=== PATIENT | female | born 1990 | race Caucasian/White ===

== ENCOUNTER → 2019-07-19 | Outpatient (CLI) | payer BC ==
[~2019-07-19] MED LIST: ACHD5005 PO; BCP PO; DOCU100C37 PO; FERR-57 PO; HYDR-3729 PO; IBP600T1 PO; IBUP-1773 PO; PNV91TAB3 PO; PREN1TAB71 PO
--- NOTE | 2019-07-19 16:11 | Diagnostic Imaging Report ---
INDICATION: anatomy survey. TECHNIQUE: Multiple real-time grayscale images were obtained over the gravid uterus. COMPARISON: None. FINDINGS: There are no prior studies available for comparison. FINDINGS: There is a single live fetus in cephalic presentation. heart motion was noted and a rate of 140 bpm was recorded. There are no abnormalities identified. The growth parameters are fairly uniform. The placenta is posterior and fundal and there is no previa. The amniotic fluid volume is within normal limits. The cervix is identified and measures 6.2 cm in length. Biometrical measurements are as follows: Biparietal 4.4 cm, age 19 weeks 3 days. Head circumference 15.97 cm, age 18 weeks 6 days. Abdominal circumference 14.26 cm, age 19 weeks 5 days. Femur length 3 cm, age 19 weeks 2 days. Sonographic estimate age: 19 weeks 3 days. Sonographic estimated date of delivery: 12/10/2019. Estimated Weight: 290 gm (+/- 42 gm). LMP percentile: 51%. heart rate: 140 beats per minute. number: 1 of 1. IMPRESSION: 1. There is a single live fetus of approximately 19 weeks 3 days gestation +/- 1.5 weeks. The EDC is December 10, 2019. 2. There are no abnormalities identified. 3. The growth parameters are fairly uniform. Dictated by: Dictated on workstation # [id number]
== END ==
LOC: RAD 14:13
PROVIDERS: ATTEND Nurse Practitioner Women's Health
DX: Z36.89 Encounter for other specified antenatal screening (principal); Z3A.19 19 weeks gestation of pregnancy
CPT/HCPCS: 76805

== ENCOUNTER 2019-11-29 05:35 | Outpatient (CLI) | payer BC ==
[~2019-11-29] VITALS: Ht 170.2 cm; Wt 123.6 kg
[2019-11-29] MEDS ORDERED: PREN1TAB73 PO (14:24)
== END 2019-11-29 14:25 | disposition home or self-care (01) ==
LOC: PREOP 05:35
PROVIDERS: ATTEND Obstetrics & Gynecology
DX: Z01.818 Encounter for other preprocedural examination (principal)

== ENCOUNTER 2019-12-07 06:45 | Inpatient (IN) | payer BC ==
[~2019-12-07] VITALS: Ht 170.2 cm; Wt 123.6 kg
[2019-12-07] VITALS (9 sets, daily range): BP systolic 95–117; BP diastolic 56–73
[~2019-12-07 06:45] MED LIST changes: +PREN1TAB73 PO
[2019-12-07] MEDS ORDERED: LACTATED RINGERS 1,000 ML IV PRN (07:44)
[2019-12-07] MEDS ORDERED: CITRIC ACID/SOB CIT (BICITRA) 30 ML UDC PO ONE (07:45)
[2019-12-07] MEDS ORDERED: METOCLOPRAMIDE INJ 10 MG/2 ML (REGLAN) IV ONE (07:45)
[2019-12-07] MEDS ORDERED: FAMOTIDINE 20MG/2ML IV (PEPCID) IV ONE (07:45)
[2019-12-07] MEDS ORDERED: CATHETER FLUSH 10 ML SYR IV PRN (07:45)
[2019-12-07 08:27] LABS: BASOPHILS % (AUTO) 0 % (0-10); EOSINOPHILS # (AUTO) 0.1 10^3/uL (0.0-0.3); EOSINOPHILS % (AUTO) 1 % (0-10); HEMATOCRIT 35 % (35-52); LYMPHOCYTES # (AUTO) 1.7 X 10^3 (1.0-4.0); LYMPHOCYTES % (AUTO) 22 % (12-44); MEAN CORPUSCULAR HEMOGLOBIN 29 PG (25-34); MEAN CORPUSCULAR HGB CONC 34 G/DL (32-36); MEAN CORPUSCULAR VOLUME 85 FL (80-99); MONOCYTES # (AUTO) 0.5 X 10^3 (0.0-1.0); MONOCYTES % (AUTO) 6 % (0-12); NEUTROPHILS # (AUTO) 5.5 X 10^3 (1.8-7.8); NEUTROPHILS % (AUTO) 71 % (42-75); PLATELET COUNT 210 10^3/uL (130-400); RED CELL DISTRIBUTION WIDTH 14.8 % (10.0-14.5); WHITE BLOOD COUNT 7.8 10^3/uL (4.3-11.0)
[2019-12-07] MEDS: LACTATED RINGERS 1,000 ML IV PRN ×2 (08:33→09:35)
--- NOTE | 2019-12-07 08:51 | History & Physical-OB ---
OB - Chief Complaint & HPI Date/Time Date of Admission: Date of Admission: Dec 07, 2019 at 06:45 Date seen by a Provider: Dec 07, 2019 Time Seen by a Provider: 08:30 Chief Complaint/History OB-Reason for Admission/Chief: Section Hx : 4 Hx Para: 3 Expected Date of Delivery: Dec 11, 2019 Gestational Age in Weeks: 39 Gestational Age in Days: 3 Indication for : desires repeat Admission Nurse Assessment Rev: Yes History of Labs B pos Antibody neg RPR NR HBsAg NR HIV NR GC neg RI GBS neg Allergies and Home Medications Allergies Coded Allergies: No Known Drug Allergies (Verified Allergy, Unknown, 09/30/09) Home Medications Pnv95/Ferrous Fumarate/FA 1 Each Tablet, 1 EACH PO DAILY, (Reported) Patient Home Medication List Home Medication List Reviewed: Yes OB - History Hx of Present Care: Yes Ultrasounds: Normal mid trimester US Obstetrical Complications: None Medical Complications: None Obstetrical History Hx Termination: No Hx Multiple Gestation: No Hx Stillbirth: No Hx Complication: No Hx Induced Hypertens: No Hx Maternal Gestational Diabet: No Delivery History Hx Dystocia: No Hx Large For Gestational Age I: No Hx Small for Gestational Age I: No Hx Section: No Hx Vaginal Delivery Post C-Sec: No Hx Blood Disorders: No Adverse Rxn to Tranfusion: No Patient Past Medical History obesity BMI >35 Immunizations Hepatitis A: Yes Hepatitis B: Yes Tetanus Booster (TDap): Less than 5yrs Date of Influenza Vaccine: Jun 21, 2019 OB - Admission Exam Physical Exam HEENT: NCAT Heart: Rhythm Normal Lungs: Clear Abdomen: Gravid Extremities: Normal Reflexes: Normal Heart Rate: 130's Accelerations: Accelerations Present Decelerations: No Decelerations Short Term Variability: Present Print Buyer Variability: Average (6-25) Contractions on Admission: >10 Minutes Apart Intensity: Mild Labs Laboratory Tests Test 12/07/19 08:00 Range/Units White Blood Count 7.8 4.3-11.0 10^3/uL Red Blood Count 4.11 L 4.35-5.85 10^6/uL Hemoglobin 12.0 11.5-16.0 G/DL Hematocrit 35 35-52 % Mean Corpuscular Volume 85 80-99 FL Mean Corpuscular Hemoglobin 29 25-34 PG Mean Corpuscular Hemoglobin Concent 34 32-36 G/DL Red Cell Distribution Width 14.8 H 10.0-14.5 % Platelet Count 210 130-400 10^3/uL Mean Platelet Volume 11.0 H 7.4-10.4 FL Neutrophils (%) (Auto) 71 42-75 % Lymphocytes (%) (Auto) 22 12-44 % Monocytes (%) (Auto) 6 0-12 % Eosinophils (%) (Auto) 1 0-10 % Basophils (%) (Auto) 0 0-10 % Neutrophils # (Auto) 5.5 1.8-7.8 X 10^3 Lymphocytes # (Auto) 1.7 1.0-4.0 X 10^3 Monocytes # (Auto) 0.5 0.0-1.0 X 10^3 Eosinophils # (Auto) 0.1 0.0-0.3 10^3/uL Basophils # (Auto) 0.0 0.0-0.1 10^3/uL OB - Assessment/Plan/Diagnosis Assessment Assessment: section Admission Dx 29 yo @ 39.3 weeks Previous section Admission Status: Inpatient Order (span 2 midnights) Reason for Inpatient Admission: Repeat cesearean at term Plan Plan: Section SULY HOFFMAN DO Dec 07, 2019 08:51
[2019-12-07] MEDS ORDERED: OXYTOCIN PRE-MIX DRIP 500 ML IV SCH (08:54)
[2019-12-07] MEDS ORDERED: BISACODYL 10 MG SUPP (DULCOLAX) PR PRN (09:00)
[2019-12-07] MEDS ORDERED: MEASLES,MUMPS,RUBELLA 1 EA INJ SC SCH (09:00)
[2019-12-07] MEDS ORDERED: ONDANSETRON 4 MG/2 ML (SDV) Z0FRAN IVP PRN (09:00)
[2019-12-07] MEDS ORDERED: TETANUS,DIPTH,PERTUSS P/F (BOOSTRIX) 0.5 ML VIAL IM SCH (09:00)
[2019-12-07] MEDS ORDERED: ceFAZolin 2 GM IV Premixed 50 ML ONE (09:02)
[2019-12-07] MEDS ORDERED: ONDANSETRON 4 MG/2 ML (SDV) Z0FRAN ONE (09:03)
[2019-12-07] MEDS ORDERED: fentaNYL INJECTION 100 MCG/2 ML AMP ONE (09:03)
[2019-12-07] MEDS ORDERED: BUPIVACAINE 0.5% 30 ML (SENSORCAINE) VIAL ONE (09:12)
[2019-12-07] MEDS ORDERED: Hydrocodone Bit/Acetaminophen PO (09:16)
[2019-12-07] MEDS ORDERED: DCS100C PO (09:16)
[2019-12-07] MEDS ORDERED: IBUP-844 PO (09:16)
--- NOTE | 2019-12-07 09:17 | Discharge Inst-Women's Service ---
Discharge Inst-Women's Serv Depart Medication/Instructions New, Converted or Re-Newed RX: RX on Chart Final Diagnosis POD 2 RLTCS Problems Reviewed?: Yes Consults/Follow Up Additional Follow Up: Yes Orders/Referrals Dr. Kerr in 7-10 days and in 6 weeks Activity Activity: Activity as Tolerated Driving Instructions: No Driving for 1 Week NO SMOKING: NO SMOKING Nothing Inside Vagina: No Douching, No Burlison, No Tampons Diet Discharge Diet: No Restrictions Symptoms to Report to : Bleeding Excessive, Pain Increased, Fever Over 101 Degrees F, Vaginal Bleeding Increase, Questions/Concerns For Any Problems or Questions: Contact Your Physician Skin/Wound Care Infection Signs and Symptoms: Increased Redness, Foul Odor of Wound, Increased Drainage, Skin Itchy or Has a Rash, Increased Swelling, Temperature Above 101 F Operative Area Clean and Dry: Keep Incision Clean/Dry Stitches/Obi/Dermabond: Dermabond, Care of Stitches Bathing Instructions: SULY Rushing DO Dec 07, 2019 09:17
[2019-12-07] MEDS: ceFAZolin 2 GM IV Premixed 50 ML IV ONE ×2 (09:32→09:49)
[2019-12-07] MEDS ORDERED: diphenhydrAMINE 50 MG/ML INJ (BENADRYL) IV PRN (10:15)
[2019-12-07] MEDS ORDERED: ONDANSETRON 4 MG/2 ML (SDV) Z0FRAN IV PRN (10:15)
[2019-12-07] MEDS ORDERED: NALOXONE 0.4 MG/ML 1 ML (NARCAN) VIAL IV PRN (10:15)
[2019-12-07] MEDS ORDERED: KETOROLAC 30 MG/ML VIAL ONE (10:19)
[2019-12-07] MEDS: KETOROLAC 30 MG/ML VIAL IV SCH ×2 (10:30→23:35)
--- NOTE | 2019-12-07 11:42 | NUR ---
apodaca catheter dc'd per Dr's orders. 50cc dark, yellow urine noted in chamber. FFu/0. lt rubra noted, no clots expressed. laith-care offered. v-pad in place.
--- NOTE | 2019-12-07 11:44 | NUR ---
pt transferred to room 305 via bed with , staff and s/o @ side. call light within reach. familiarized with room supplies..
--- NOTE | 2019-12-07 12:10 | NUR ---
report given to BEE Ventura. care assumed of pt.
--- NOTE | 2019-12-07 12:19 | NUR ---
RT notified of IS to be started
[2019-12-07] MEDS: DOCUSATE SODIUM 100 MG (COLACE) CAP PO SCH ×2 (12:46→23:35)
--- NOTE | 2019-12-07 14:58 | NUR ---
Assisted up to bathroom, void and back to bed.
[2019-12-07] MEDS: HYDROcodone/APAP 5 MG/325 MG (LORTAB) TAB PO PRN (15:05)
--- NOTE | 2019-12-07 16:11 | OPERATIVE REPORT ---
DATE OF SERVICE: PREOPERATIVE DIAGNOSES: 1. A 29-year-old G4, P3, at 39 weeks' gestation. 2. Previous section. POSTOPERATIVE DIAGNOSES: 1. A 29-year-old G4, P3, at 39 weeks' gestation. 2. Previous section. PROCEDURE: Repeat low transverse section. SURGEON: Ish Hoffman DO MICROGRINDER OPERATOR: Hanna Sheets DNP, who was necessary for vital retraction and manipulation of structures throughout the procedure. ANESTHESIA: Spinal. ESTIMATED BLOOD LOSS: 600 mL. URINE OUTPUT: 300 mL clear at the end of the procedure. FLUIDS: 700 mL lactated Ringer's solution. FINDINGS: A live male infant weighing 9 pounds 6 ounces, Apgars of 8 and 9. Grossly normal appearing uterus, bilateral fallopian tubes and ovaries. SPECIMEN SENT: None. INDICATIONS FOR PROCEDURE: This 29-year-old female who is a patient who had sought care in my office. Her course was uncomplicated with the exception of an elevated BMI. She progressed to 39 weeks without complication, at which point she was scheduled for repeat . Risks of the procedure was discussed with the patient throughout her course as well as preoperatively after all of her questions were answered, consent was obtained, the patient was taken to the operating room. OPERATIVE REPORT IN DETAIL: Once in the operating room, spinal analgesia was found to be adequate, placed in supine position with leftward tilt, prepped and draped in normal sterile fashion. A timeout was performed and anesthesia was tested. I then make a Pfannenstiel skin incision through the previously existing scar using a knife and carried down to underlying fascia using Bovie cautery. The fascial incision extended laterally using Bovie cautery. Superior aspect of the fascial incision was then grasped with Jerry clamps, tented up and dissected off the underlying rectus muscles. The inferior aspect of the fascial incision was then grasped with Jerry clamps, tented upward and dissected off the underlying rectus muscles. Rectus muscles were then dissected down the midline, which exposed the peritoneum, which I then entered bluntly and extended using blunt traction. Pardeep ring retractor was placed within the peritoneal incision, which offers excellent lateral sidewall retraction. I identified the lower uterine segment, which was found to be thinned out and make a low transverse incision to the vesicouterine peritoneum and bluntly dissected off the lower uterine segment. I proceeded with myotomy until membranes were visualized, at which point I extended the uterine incision laterally and superiorly using bandage scissors. Amniotomy was then performed using Allis clamp. Clear fluid was noted. The was found in vertex presentation. With gentle fundal pressure, the infant's head was elevated to the incision where it was delivered through the incision. The nares and oropharynx were bulb suctioned. Anterior and posterior shoulders were delivered. was then brought to the operative field where cord was doubly clamped and cut and handed off to waiting nurses in attendance. Cord blood was collected. A 3-vessel cord with intact placenta was delivered spontaneously thereafter. IV Pitocin was initiated to facilitate uterine contraction. Uterine fundus confirmed with bimanual massage. The uterus was then exteriorized and cleared of all endometrial clots and debris. I then proceeded with closing the uterine incision using 0 Vicryl suture in running locked fashion. Second layer of imbricating 0 Monocryl was placed. Excellent hemostasis was noted after doing this. I then placed the uterus back within the pelvis and copiously irrigated the pelvis using normal saline. Once again, there was no active bleeding noted from any of my dissection planes. I placed Interceed antiadhesive over my low transverse incision and proceeded with closing the peritoneum after I removed the Pardeep ring retractor. The peritoneum was reapproximated using 3-0 Vicryl suture in running fashion. The rectus muscles were reapproximated using 3-0 Vicryl suture in interrupted fashion. The fascia was reapproximated using 0 Vicryl suture in a running fashion. The subcutaneous tissue was reapproximated using 3-0 plain in interrupted subcutaneous stitch and skin reapproximated using 4-0 Monocryl running subcuticular. Dermabond was applied to the incision and sterile dressing was adhesed with white tape. The patient tolerated the procedure well and was taken to recovery area in stable condition. Lap and sponge counts were correct at the end of procedure. Instrument counts correct as well. Job ID: [id number] DocumentID: [id number] Dictated Date: 12/07/2019 10:25:06 Color Separation Photographer Date: 12/07/2019 16:10:36 Dictated By: ISH HOFFMAN DO
[2019-12-07] MEDS: CATHETER FLUSH 10 ML SYR IV SCH (16:55)
--- NOTE | 2019-12-07 19:55 | NUR ---
Patient awake in room, sitting in bed . S/O at bedside. No needs or concerns voiced. POC reviewed. Call light within reach.
[2019-12-08 01:30] VITALS: BP 106/66
[2019-12-08] MEDS: KETOROLAC 30 MG/ML VIAL IV SCH (06:04)
[2019-12-08] MEDS: HYDROcodone/APAP 5 MG/325 MG (LORTAB) TAB PO PRN ×2 (06:05→23:22)
[2019-12-08 06:15] VITALS: BP 114/78
[2019-12-08 06:36] LABS: BASOPHILS % (AUTO) 0 % (0-10); EOSINOPHILS # (AUTO) 0.1 10^3/uL (0.0-0.3); EOSINOPHILS % (AUTO) 1 % (0-10); HEMATOCRIT 35 % (35-52); HEMOGLOBIN 11.7 G/DL (11.5-16.0); LYMPHOCYTES # (AUTO) 1.7 X 10^3 (1.0-4.0); LYMPHOCYTES % (AUTO) 19 % (12-44); MEAN CORPUSCULAR HEMOGLOBIN 28 PG (25-34); MEAN CORPUSCULAR HGB CONC 33 G/DL (32-36); MEAN CORPUSCULAR VOLUME 85 FL (80-99); MEAN PLATELET VOLUME 11.7 FL (7.4-10.4); MONOCYTES # (AUTO) 0.6 X 10^3 (0.0-1.0); MONOCYTES % (AUTO) 7 % (0-12); NEUTROPHILS # (AUTO) 6.4 X 10^3 (1.8-7.8); NEUTROPHILS % (AUTO) 73 % (42-75); PLATELET COUNT 194 10^3/uL (130-400); RED CELL DISTRIBUTION WIDTH 14.8 % (10.0-14.5); WHITE BLOOD COUNT 8.7 10^3/uL (4.3-11.0)
[2019-12-08] MEDS: IBUPROFEN 600 MG (MOTRIN) TAB PO SCH ×3 (08:32→21:24)
[2019-12-08] MEDS: DOCUSATE SODIUM 100 MG (COLACE) CAP PO SCH ×2 (08:40→21:23)
--- NOTE | 2019-12-08 08:42 | Postpartum Progress Note ---
Post Op Post-operative Day #1 s/p RLTCS Subjective: Patient is without complaints. Ambulating, voiding after apodaca removed. Tolerating a regular diet without nausea or vomiting. Normal lochia. Pain is well controlled with oral pain medications. Passing flatus. breast feeding. Objective: Laboratory Tests Test 12/08/19 06:05 Range/Units White Blood Count 8.7 4.3-11.0 10^3/uL Red Blood Count 4.15 L 4.35-5.85 10^6/uL Hemoglobin 11.7 11.5-16.0 G/DL Hematocrit 35 35-52 % Mean Corpuscular Volume 85 80-99 FL Mean Corpuscular Hemoglobin 28 25-34 PG Mean Corpuscular Hemoglobin Concent 33 32-36 G/DL Red Cell Distribution Width 14.8 H 10.0-14.5 % Platelet Count 194 130-400 10^3/uL Mean Platelet Volume 11.7 H 7.4-10.4 FL Neutrophils (%) (Auto) 73 42-75 % Lymphocytes (%) (Auto) 19 12-44 % Monocytes (%) (Auto) 7 0-12 % Eosinophils (%) (Auto) 1 0-10 % Basophils (%) (Auto) 0 0-10 % Neutrophils # (Auto) 6.4 1.8-7.8 X 10^3 Lymphocytes # (Auto) 1.7 1.0-4.0 X 10^3 Monocytes # (Auto) 0.6 0.0-1.0 X 10^3 Eosinophils # (Auto) 0.1 0.0-0.3 10^3/uL Basophils # (Auto) 0.0 0.0-0.1 10^3/uL 12/08/19 12/08/19 01:30 06:15 Temp 36.4 36.5 Pulse 68 88 Resp 18 18 B/P (MAP) 106/66 (79) 114/78 (90) Pulse Ox 95 97 O2 Delivery Room Air Room Air 12/08/19 00:00 Intake Total 500 ml Balance 500 ml Physical Exam: General - Alert and oriented, no apparent distress Abdomen - Soft, appropriately tender to palpation, non-distended, fundus firm at umbilicus Incision - clean, dry and intact; no erythema or induration, no drainage Extremities - no edema, negative Мария's bilaterally Assessment: 1. post-operative day # 1, status post RLTCS. Recovering well, hemodynamically stable Plan: Routine post-operative care. Encourage breast feeding. Encourage ambulation. VTE prophylaxis: SCDs. Ferrous sulfate supplementation. Plan for discharge tomorrow Vitals - Labs Vital Signs - I&O Vital Signs Date Time Temp Pulse Resp B/P (MAP) Pulse Ox O2 Delivery O2 Flow Rate FiO2 12/08/19 06:15 36.5 88 18 114/78 (90) 97 Room Air 12/08/19 01:30 36.4 68 18 106/66 (79) 95 Room Air 12/07/19 20:40 36.5 76 18 95/62 (73) 95 Room Air 12/07/19 16:12 Room Air 12/07/19 15:06 37.1 90 18 117/56 (76) 97 Room Air 12/07/19 12:45 36.7 70 18 117/68 (84) 100 Room Air 12/07/19 11:32 36.3 18 109/65 (80) 98 Room Air 12/07/19 11:32 Room Air 12/07/19 11:32 36.3 77 18 109/65 (80) 98 Room Air 12/07/19 11:16 36.2 16 106/62 (77) 100 Room Air 12/07/19 11:16 Room Air 12/07/19 10:58 Room Air 12/07/19 10:58 36.1 16 117/61 (79) 98 Room Air 12/07/19 10:40 Room Air 12/07/19 10:40 36.1 16 114/61 (78) 100 Room Air I & O 12/08/19 07:00 Intake Total 2350 ml Output Total 1950 ml Balance 400 ml Labs Laboratory Tests 12/08/19 06:05: White Blood Count 8.7, Red Blood Count 4.15L, Hemoglobin 11.7, Hematocrit 35, Mean Corpuscular Volume 85, Mean Corpuscular Hemoglobin 28, Mean Corpuscular Hemoglobin Concent 33, Red Cell Distribution Width 14.8H, Platelet Count 194, Mean Platelet Volume 11.7H, Neutrophils (%) (Auto) 73, Lymphocytes (%) (Auto) 19, Monocytes (%) (Auto) 7, Eosinophils (%) (Auto) 1, Basophils (%) (Auto) 0, Neutrophils # (Auto) 6.4, Lymphocytes # (Auto) 1.7, Monocytes # (Auto) 0.6, Eosinophils # (Auto) 0.1, Basophils # (Auto) 0.0 CARRILLO HAWKINS DO Dec 08, 2019 08:42
--- NOTE | 2019-12-08 11:43 | Anesthesia-Regional Post-Op ---
Regional Patient Condition Mental Status: Alert, Oriented x3 Circulation: Same as Pre-Op Headache: Absent Sensation: Full Recovery Motor Block: Absent Post Op Complications Complications None Follow Up Care/Instructions Patient Instructions None needed. Anesthesia/Patient Condition Patient is doing well, no complaints, stable vital signs, no apparent adverse anesthesia problems. No complications reported per nursing. MAGO HENDRIX CRNA Dec 08, 2019 11:43
[2019-12-08 12:22] VITALS: BP 107/64
[2019-12-08] MEDS: CATHETER FLUSH 10 ML SYR IV SCH ×2 (14:00→22:13)
[2019-12-08 17:31] VITALS: BP 105/72
--- NOTE | 2019-12-08 20:00 | NUR ---
Pt sitting up in bed holding . Infant handed to FOB. Fundus checked per this RN. Fundus firm, no excessive bleeding noted. Pt denies any concerns.
--- OUTSIDE RECORDS SUMMARY | 2019-12-08 23:04 | XMS REPORT ---
Author Author [employer]. Organization [facility] Address [address] [address] Care Team Providers Care Olive Grader Name Role Phone NO, LOCAL PHYSICIAN Unavailable Unavailable Iveth Hurst Unavailable Unavailable Iveth Hurst Unavailable Unavailable REMEDIOS HAYNES Unavailable HetJose J maldonado Unavailable Iveth Hurst Unavailable Unavailable Jose J Rodríguez Unavailable [place] yusuf Unavailable [place] yusuf Unavailable CARRILLO HAWKINS DO Unavailable Unavailable CARRILLO HAWKINS DO Unavailable Unavailable FENECH DOSULY S Unavailable Unavailable FENECH DO SULY S Unavailable Unavailable MIKY GONZALEZ APRN Unavailable Unavailable NO, LOCAL PHYSICIAN PCP Unavailable Allergies Normalized Allergy Reported Date of Reaction(s) Care Provider Facility Allergy Type classification allergen Allergy Onset NEGATED no information cromolyn no information 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 [facility] (13 sources.) ([address]881) DA (21 Unclassified No Known Drug 09-30-2009 - no information CARRILLO HAWKINS , Not Available sources.) Allergies DO (91319) Medications Current Medications Medication Ingredient Drug Dose Dates Status Sig Sig Care Class(es) (Normalized) (Original) Provid er no Pnv95/Nas no Active no Pnv95/Ferrou no information us information information s name (2 Fumarate/Fa Fumarate/Fa (no sources.) Active 1 phone) ORAL Daily 11-29-2019 Completed no Pnv95/Fe no name inform rrous (no ation Fumarate phone) /Fa Disconti nued 1 ORAL Daily November 29, 2019 Completed/Discontinued Medications Medication Ingredient Drug Dose Dates Status Sig Sig Care Class(es) (Normalized) (Original) Provid er no Bcp no 07-19-20 Complete no Bcp no information information 16 d information Disconti nued name (1 source.) 1 ORAL (no Bedtime phone) July 19, 2016 no no 09-08-20 Complete no no information Vit/Fe information 15 d information Vit/Fe name (1 source.) Fumarate/Fa Fumarate/Fa (no Discontinued phone) 1 ORAL Daily September 08, 2015 Problems Active Problems Problem Normalized Date of Normalized Normalized Provider Fac ility Classification Problem(s) Problem Problem Problem Sta tus Onset/Resoluti Duration on Residual 19 weeks Episodic Active MIKY GONZALEZ [facility] Via codes; gestation of [facility] un[facility] - (3 sources.) [place] ([id number]) Other Encounter for Episodic Active MIKY GONZALEZ [facility] Via screening for other [place] suspected specified Hospital - conditions [place] (not mental screening (82533) disorders or infectious disease) (3 sources.) Residual H/O: Episodic Active LOCAL NO [facility] Via codes; section [facility] (1 source.) (68906) Past or Other Problems Problem Normalized Date of Normalized Normalized Provider Fac ility Classification Problem(s) Problem Problem Problem Sta tus Onset/Resoluti Duration on Residual 19 weeks no information no information MIKY GONZALEZ [facility] Via codes; gestation of [facility] un[facility] - (1 source.) [place] ([id number]) Residual 39 weeks no information no information SULY FENECH Not Available codes; gestation of , DO (06734) unclassified (5 sources.) Biliary tract Calculus of 01-07-2018 - Episodic Completed no nam e no information disease (6 gallbladder sources.) without cholecystitis without obstruction Translations: [ Cholecystitis, unspecified] Other Congenital or Episodic Completed RAMANA Not Avai lable complications acquired JOHN , (27866) of abnormality of MD (1 source.) vagina, antepartum condition or complication Other skin Disorder of Episodic Completed CARRILLO HAWKINS , Not A vailable disorders (7 the skin and DO (73432) sources.) subcutaneous tissue, unspecified Other Encounter for no information no information MIKY ALFONSO [facility] Via screening for other [place] suspected specified Hospital - conditions [place] (not mental screening (80658) disorders or infectious disease) (1 source.) Other female Leukorrhea, Episodic Completed RAMANA Not Mary ilable genital not specified JOHN , (37654) disorders (1 as infective MD source.) Previous Maternal care no information no information SULY Duque ENECH Not Available (5 for low , DO (45500) sources.) transverse scar from previous delivery Malposition; Maternal care Episodic Completed SULY FENECH Not Available malpresentatio for , DO (90027) n (9 sources.) malpresentatio n of fetus, unspecified, not applicable or unspecified Translations: [ MATERNAL CARE FOR BREECH PRESENTATION, U] Nausea and Nausea 01-07-2018 - Episodic Completed no name [facility] vomiting ([facility] sources.) (51449) Umbilical cord Other and Episodic Completed CARRILLO HAWKINS , Not Available complication unspecified DO (99100) (9 sources.) cord entanglement, without mention of compression, complicating labor and delivery, delivered, with or without mention of antepartum condition Translations: [ LABOR AND DELIVERY COMP BY CORD AROUND N] Other Other current Episodic Completed CARRILLO HAWKINS , Not Available complications conditions DO (44250) of ; classifiable puerperium elsewhere of affecting mother, management of delivered, mother (4 with or sources.) without mention of antepartum condition Other Outcome of Episodic Completed CARRILLO HAWKINS , Not Mary ilable and delivery, DO (17769) delivery single including liveborn normal (9 Translations: sources.) [ SINGLE LIVE ] Abdominal pain Right upper 01-07-2018 - Episodic Completed no na [facility] (3 sources.) quadrant pain [facility] ([id number]) Procedures Procedure Normalized Procedure Procedure Result Performer Facility Date 01-23-2018 Comprehen metabolic no information no name (no phon e) [facility] 01-23-2018 ([id number]) (Work Phone: - ) 01-23-2018 01-23-2018 Echo exam of abdomen no information no name (no darren ne) [facility] 01-23-2018 ([id number]) (Work Phone: - ) 01-23-2018 EXTRACTION OF POC, LOW no information no name (no phone) Not Available ([id number]) CERVICAL, OPEN AP Other manually no information no name (no phone) Not Availab le (91207) assisted delivery 01-23-2018 WBC (Leukocytes) no information no name (no phone) [facility] 01-23-2018 ([id number]) (Work Phone: - ) 01-23-2018 Immunizations The data below is from unstructured sources Immunization Event Date Not Given Reason Dose Number Switchboard Operator Lot Number Vaccine Information Statement (VIS) Deta il Results The data below is from unstructured sourcesNo known relevant diagnostic tests and/or laboratory data. Vital Signs Vital Sign Value Interpretation Reference Date Time Care [facility] (Normalized) (Normalized) Range BMI (Body Mass 39.31 kg/m2 (no code) 15 - 25 kg/m2 02-27-2018 [employer]) 11:45-0400 [id number] [facility] ([id number]) ( ) BMI (Body Mass 39.47 kg/m2 (no code) 15 - 25 kg/m2 01-23-2018 Per [employer] Index) 11:55-0400 06616 [facility] ([id number]) ( ) BMI (Body Mass 39.78 kg/m2 (no code) 15 - 25 kg/m2 01-10-2018 [employer]) 10:39-0400 94865 [facility] ([id number]) ( ) Body 98.1 [degF] (no code) 97.8 - 99.0 02-27-2018 Suly [employer] Temperature [degF] 11:45-0400 35481 [facility] ([id number]) ( ) Body 98.8 [degF] (no code) 97.8 - 99.0 01-23-2018 Suly [employer] Temperature [degF] 11:55-0400 36607 [facility] ([id number]) ( ) Body 98.8 [degF] (no code) 97.8 - 99.0 01-10-2018 Suly [employer] Temperature [degF] 10:39-0400 06173 [facility] ([id number]) ( ) Blood Pressure 126/ (no code) Systolic: 90 - 02-27-2018 [facility] [place] [facility] 96mm[Hg] 119 mm[Hg] 11:45-0400 76383 [facility] ([id number]) Diastolic: 60 (Work Phone: - 79 mm[Hg] ) Blood Pressure 124/ (no code) Systolic: 90 - 01-23-2018 Saurav ael [place] [facility] 86mm[Hg] 119 mm[Hg] 11:550400 27213 [facility] ([id number]) Diastolic: 60 (Work Phone: - 79 mm[Hg] ) Blood Pressure 124/ (no code) Systolic: - 01-10-2018 Saurav ael [place] [facility] 86mm[Hg] 119 mm[Hg] 10:390400 68398 [facility] ([id number]) Diastolic: 60 (Work Phone: - 79 mm[Hg] ) BSA (Body 2.32 m2 (no code) m2 02-27-2018 [employer] [facility] Surface Area) 11:450400 87218 [facility] ([id number]) ( ) BSA (Body 2.32 m2 (no code) m2 01-23-2018 [employer] [facility] Surface Area) 11:55-0400 98232 [facility] ([id number]) ( ) BSA (Body 2.33 m2 (no code) m2 01-10-2018 [employer] [facility] Surface Area) 10:39-0400 58544 [facility] ([id number]) ( ) Height 170.18 cm (no code) cm 02-27-2018 [employer] [facility] 11:450400 97124 [facility] ([id number]) ( ) Height 170.18 cm (no code) cm 01-23-2018 [place]uly [place] [employer] [facility] 11:55-0400 48896 [facility] ([id number]) ( ) Height 170.18 cm (no code) cm 01-10-2018 [place] [employer] 10:39-0400 74173 [facility] ([id number]) ( ) Pulse (Heart 89 /min (no code) 60 - 100 /min 02-27-2018 Suly [place] [facility] Rate) 11:45-0400 98476 [facility] ([id number]) ( ) Pulse (Heart 87 /min (no code) 60 - 100 /min 01-23-2018 Suly [place] [facility] Rate) 11:55-0400 44492 [facility] ([id number]) ( ) Pulse (Heart 74 /min (no code) 60 - 100 /min 01-10-2018 Suly [place] [facility] Rate) 10:39-0400 33423 [facility] ([id number]) ( ) Pulse Oximetry 98 % (no code) 95 - 100 % 02-27-2018 Suly [place] [facility] 11:45-0400 39701 [facility] ([id number]) ( ) Pulse Oximetry 99 % (no code) 95 - 100 % 01-23-2018 Suly [place] [facility] 11:55-0400 14115 [facility] ([id number]) ( ) Pulse Oximetry 98 % (no code) 95 - 100 % 01-10-2018 Suly [place] [facility] 10:39-0400 93814 [facility] ([id number]) ( ) Respiratory 16 /min (no code) 12 - 20 /min 02-27-2018 Suly [facility] Rate 11:45-0400 14275 [facility] ([id number]) ( ) Respiratory 16 /min (no code) 12 - 20 /min 01-23-2018 Suly B olt [facility] Rate 11:55-0400 91733 [facility] ([id number]) ( ) Respiratory 18 /min (no code) 12 - 20 /min 01-10-2018 Suly B olt [facility] Rate 10:39-0400 23751 [facility] ([id number]) ( ) Weight 113.85 kg (no code) kg 02-27-2018 [place]uly [place] [employer] [facility] 11:45-0400 10621 [facility] ([id number]) ( ) Weight 114.31 kg (no code) kg 01-23-2018 [facility] 11:[facility] 60388 [facility] ([id number]) ( ) Weight 115.21 kg (no code) kg 01-10-2018 [place] L [employer] 10:39-0400 67652 [facility] ([id number]) ( ) Interventions No Information Plan of Treatment Normalized Care Care Detail Care Activity Date Care Provider F acility Activity Complete cbc w/auto CBC with Diff, 02-15-2018 - [facility] [address] [place] [address] diff wbc automated 02-15-2018 - [facility] 02-15-2018 ([id number]) ( ) Patient referral no information no information LOCAL NO [facility] ([id number]) no information gallstone no information Suly [place] [address] [facility] ([id number]) ( ) Goals Patient Goal Desired Goal no information no information Social History Normalized Code Original Code Date Value no information no information 09-09-2015 Rarely Uses no information no information 09-10-2013 No no information no information 09-12-2013 Denies no information no information 11-29-2019 Never a Smoker Sex Assigned At Sex Assigned At no information F emale Functional Status The data below is from unstructured sources Query Response Date Jacob rded Patient Orientation Person Place Time Situation July 23, 2016 2:12pm No Functional Status information available Mental Status The data below is from unstructured sourcesNo Mental Status Information Available Encounters Encounter Normalized Encounter Encounter Diagnosis Care Provi donavon Organization Date Type 01-07-2018 Emergency department no information no name (no darren ne) no organization name - patient visit (no phone) 01-07-2018 09-10-2013 Evaluation and no information no name (no phone) n o organization name - management of (no phone) 09-12-2013 inpatient 01-10-2018 Office/outpatient no information Jose J Rodríguez [facility] - visit, est, level 3 (no phone) 01-10-2018 - 01-10-2018 01-23-2018 Office/outpatient no information Suly Arambula Other Dr. Ralf galeana (no - visit, new, level 2 darren ne) 01-23-2018 - 01-23-2018 02-16-2018 Patient encounter no information no name (no phone) no organization name - (no phone) 02-16-2018 01-25-2018 Patient encounter no information no name (no phone) no organization name - (no phone) 01-25-2018 01-07-2018 Patient encounter no information no name (no phone) no organization name - (no phone) 01-07-2018 10-03-2017 Patient encounter no information no name (no phone) no organization name - (no phone) 10-03-2017 NEGATED Patient encounter no information no name (no phone) no organization name (no phone) 11-29-2019 Patient encounter no information (no phone) Eveline murray [facility] (no phone) 11-29-2019 07-19-2019 Patient encounter no information no name (no phone) no organization name procedure (no phone) 07-19-2019 Patient encounter no information no name (no phone) no organization name procedure (no phone) 09-09-2015 Patient encounter no information no name (no phone) no organization name - procedure (no phone) 09-09-2015 09-28-2009 Patient encounter no information no name (no phone) no organization name - procedure (no phone) 09-28-2009 02-27-2018 Postop follow-up visit no information Suly Arambula Other Dr[facility] (no phone) 02-16-2018 Surgery no information Suly Arambula (no [facility] phone) (no phone) no information Encounter for other no name (no phone) no org anization name preprocedural (no phone) examination Medical Equipment The data below is from unstructured sourcesNo Medical Equipment Information available Payers Normalized Payer Value [employer] [place] [employer] no information [id number]) Private Health Insurance [id number] Evaluation note Note Type Note Facility Evaluation No Assessments Information Available A scension note [facility] ([id number]) Advance Directives Directive Response Recor ded Date/Time Advance Directives No 11:29am Health Care Power of Test Analyst No 07/21/16 11:29am Organ Donor Yes 07/21/16 11:29am Resuscitation Status Full Code 07/21/16 11:29am Directive Response Recor ded Date/Time Advance Directives No 11:21am Health Care Power of Test Analyst No 09/09/15 11:21am Organ Donor Yes 09/09/15 11:21am Resuscitation Status Full Code 09/09/15 11:21am Advance Directive Response Recorded Date/Time Advance Directives No Kamari [facility] 2019 2:16pm Health Care Power of Test Analyst No November 29, 2019 2:16pm Organ Donor Yes November 2:16pm Resuscitation Status Full Code November 29, 2019 2:16pm Discharge Instructions Patient Instructions Physician Instructions New, Converted or Re-Newed RX: RX on Chart Additional Follow Up: Yes Activity: Activity as Tolerated Driving Instructions: No Driving for 1 Week NO SMOKING: NO SMOKING Nothing Inside Vagina: No Douching, No [place], No Tampons Discharge Diet: No Restrictions Symptoms to Report to : Bleeding Excessive, Pain Increased, Fever Over 101 Degrees F, Vaginal Bleeding Increase, Questions/Concerns For Any Problems or Questions: Contact Your Physician Infection Signs and Symptoms: Increased Redness, Foul Odor of Wound, Increased Drainage, Skin Itchy or Has a Rash, Increased Swelling, Temperature Above 101 F Operative Area Clean and Dry: Keep Incision Clean/Dry Stitches/Obi/Dermabond: Dermabond, Care of Stitches Bathing Instructions: Shower Patient Instructions Physician Instructions New, Converted or Re-Newed RX: RX on Chart Instructions Keep dressing on overnight. May use ice pack intermittently over night and then as needed. Keep area clean and dry. Sutures will be removed at follow up in 7- 10 days. Additional Follow Up: Yes (7-10 days with Samara/Hawkins for suture removal) Activity: Activity as Tolerated Driving Instructions: No Driving for 24 Hours NO SMOKING: NO SMOKING Nothing Inside Vagina: No Douching, No [place], No Tampons Discharge Diet: No Restrictions Symptoms to Report to : Bleeding Excessive, Pain Increased, Fever Over 101 Degrees F For Any Problems or Questions: Contact Your Physician Infection Signs and Symptoms: Increased Redness, Foul Odor of Wound, Increased Drainage, Skin Itchy or Has a Rash, Increased Swelling, Temperature Above 101 F Operative Area Clean and Dry: Keep Incision Clean/Dry, You May Remove Bandage Stitches/Obi/Dermabond: Care of Stitches Bathing Instructions: Shower History of Past Illness Name Date of Onset Comme nts Asthma Asthma Jan 13 2010 8:55AM Gardsil (HPV) Jan 13 2010 8:55AM Vulva and Perineum Noninflammatory Disorders Mar 27 2010 9:00AM Glucose Intolerance Mar 27 2010 9:00AM Polycystic Ovaries Mar 27 2010 9:00AM Glucose Intolerance Apr 01 2010 9:19AM Gardsil (HPV) May 05 2010 8:22AM Polycystic Ovaries Aug 05 2010 4:08PM Vaginal Discharge Aug 05 2010 4:08PM Dysuria Aug 05 2010 4:08PM Breast Pain/Mastodynia Jul 29 2010 1:25PM Routine gynecological examination Ma r 11 2010 10:46AM Contraceptive management Dec 04 2010 10:46AM Dietary Counseling Dec 22 2010 3:59PM Upper Respiratory Infection Apr 13 8:14AM High-Risk Sexual Behavior Apr 13 1 8:14AM Bronchitis, Acute Aug 17 2011 3:29PM Routine gynecological examination 2011 9:53AM Contraceptive management Oct 27 2011 9:53AM Vaginal Discharge Oct 27 2011 9:53AM Rhinitis, Allergic Jun 13 2012 4:14PM Abscess Jul 10 2012 9:37AM Abnormal Uterine Bleeding Oct 23 201 3 3:44PM Hand, Foot, And Mouth Disease Nov 06 2012 11:21AM Routine gynecological examination Ma r 4 2012 3:33PM Contraceptive management Nov 27 2012 3:33PM Vaginal Discharge Nov 27 2012 3:33PM Cough Dec 05 2012 2:56PM Upper Respiratory Infections Dec 05 2012 2:56PM Hematoma, Abdominal Nov 02 2013 10:56AM Physical exam, pre-employment Mar 25 2014 8:46AM Tonsillitis May 30 2014 9:32AM Upper Respiratory Infections Sep 05 2014 2:29PM Otitis Media, Acute Sep 05 2014 2:29PM Abscess of thigh Jul 23 2015 2:02PM Dietary counseling Jul 23 2015 2:02PM Exercise counseling Jul 23 2015 2:02PM BMI 38.0-38.9,adult Jul 23 2015 2:02PM Name Date of Onset Comme nts Asthma Asthma Jan 13 2010 8:55AM Gardsil (HPV) Jan 13 2010 8:55AM Vulva and Perineum Noninflammatory Disorders Mar 27 2010 9:00AM Glucose Intolerance Mar 27 2010 9:00AM Polycystic Ovaries Mar 27 2010 9:00AM Glucose Intolerance Apr 01 2010 9:19AM Gardsil (HPV) May 05 2010 8:22AM Polycystic Ovaries Aug 05 2010 4:08PM Vaginal Discharge Aug 05 2010 4:08PM Dysuria Aug 05 2010 4:08PM Breast Pain/Mastodynia Jul 29 2010 1:25PM Routine gynecological examination Ma r 11 2010 10:46AM Contraceptive management Dec 04 2010 10:46AM Dietary Counseling Dec 22 2010 3:59PM Upper Respiratory Infection Apr 13 011 8:14AM High-Risk Sexual Behavior Apr 13 1 8:14AM Bronchitis, Acute Aug 17 2011 3:29PM Routine gynecological examination Fe 2011 9:53AM Contraceptive management Oct 27 2011 9:53AM Vaginal Discharge Oct 27 2011 9:53AM Rhinitis, Allergic Jun 13 2012 4:14PM Abscess Jul 10 2012 9:37AM Abnormal Uterine Bleeding Oct 23 201 3 3:44PM Hand, Foot, And Mouth Disease Nov 06 2012 11:21AM Routine gynecological examination Ma r 4 2012 3:33PM Contraceptive management Nov 27 2012 3:33PM Vaginal Discharge Nov 27 2012 3:33PM Cough Dec 05 2012 2:56PM Upper Respiratory Infections Dec 05 2012 2:56PM Hematoma, Abdominal Nov 02 2013 10:56AM Physical exam, pre-employment Mar 25 2014 8:46AM Tonsillitis May 30 2014 9:32AM Upper Respiratory Infections Sep 05 2014 2:29PM Otitis Media, Acute Sep 05 2014 2:29PM Abscess of thigh Jul 23 2015 2:02PM Dietary counseling Jul 23 2015 2:02PM Exercise counseling Jul 23 2015 2:02PM BMI 38.0-38.9,adult Jul 23 2015 2:02PM Mass of thigh, left Aug 12 2015 11:02AM Foot Pain Jun 06 2015 2:28PM Plantar fasciitis Jun 06 2015 2:28PM Name Date of Onset Comme nts Asthma Asthma Jan 13 2010 8:55AM Gardsil (HPV) Jan 13 2010 8:55AM Vulva and Perineum Noninflammatory Disorders Mar 27 2010 9:00AM Glucose Intolerance Mar 27 2010 9:00AM Polycystic Ovaries Mar 27 2010 9:00AM Glucose Intolerance Apr 01 2010 9:19AM Gardsil (HPV) May 05 2010 8:22AM Polycystic Ovaries Aug 05 2010 4:08PM Vaginal Discharge Aug 05 2010 4:08PM Dysuria Aug 05 2010 4:08PM Breast Pain/Mastodynia Jul 29 2010 1:25PM Routine gynecological examination Ma r 11 2010 10:46AM Contraceptive management Dec 04 2010 10:46AM Dietary Counseling Dec 22 2010 3:59PM Upper Respiratory Infection Apr 13 011 8:14AM High-Risk Sexual Behavior Apr 13 1 8:14AM Bronchitis, Acute Aug 17 2011 3:29PM Routine gynecological examination 2011 9:53AM Contraceptive management Oct 27 2011 9:53AM Vaginal Discharge Oct 27 2011 9:53AM Rhinitis, Allergic Jun 13 2012 4:14PM Abscess Jul 10 2012 9:37AM Abnormal Uterine Bleeding Oct 23 201 3 3:44PM Hand, Foot, And Mouth Disease Nov 06 2012 11:21AM Routine gynecological examination Ma r 4 2012 3:33PM Contraceptive management Nov 27 2012 3:33PM Vaginal Discharge Nov 27 2012 3:33PM Cough Dec 05 2012 2:56PM Upper Respiratory Infections Dec 05 2012 2:56PM Hematoma, Abdominal Nov 02 2013 10:56AM Physical exam, pre-employment Mar 25 2014 8:46AM Tonsillitis May 30 2014 9:32AM Upper Respiratory Infections Sep 05 2014 2:29PM Otitis Media, Acute Sep 05 2014 2:29PM Abscess of thigh Jul 23 2015 2:02PM Dietary counseling Jul 23 2015 2:02PM Exercise counseling Jul 23 2015 2:02PM BMI 38.0-38.9,adult Jul 23 2015 2:02PM Mass of thigh, left Aug 12 2015 11:02AM Name Date of Onset Comme nts Asthma Asthma Jan 13 2010 8:55AM Gardsil (HPV) Jan 13 2010 8:55AM Vulva and Perineum Noninflammatory Disorders Mar 27 2010 9:00AM Glucose Intolerance Mar 27 2010 9:00AM Polycystic Ovaries Mar 27 2010 9:00AM Glucose Intolerance Apr 01 2010 9:19AM Gardsil (HPV) May 05 2010 8:22AM Polycystic Ovaries Aug 05 2010 4:08PM Vaginal Discharge Aug 05 2010 4:08PM Dysuria Aug 05 2010 4:08PM Breast Pain/Mastodynia Jul 29 2010 1:25PM Routine gynecological examination Ma r 11 2010 10:46AM Contraceptive management Dec 04 2010 10:46AM Dietary Counseling Dec 22 2010 3:59PM Upper Respiratory Infection Apr 13 011 8:14AM High-Risk Sexual Behavior Apr 13 1 8:14AM Bronchitis, Acute Aug 17 2011 3:29PM Routine gynecological examination Fe 2011 9:53AM Contraceptive management Oct 27 2011 9:53AM Vaginal Discharge Oct 27 2011 9:53AM Rhinitis, Allergic Jun 13 2012 4:14PM Abscess Jul 10 2012 9:37AM Abnormal Uterine Bleeding Oct 23 201 3 3:44PM Hand, Foot, And Mouth Disease Nov 06 2012 11:21AM Routine gynecological examination Ma r 4 2012 3:33PM Contraceptive management Nov 27 2012 3:33PM Vaginal Discharge Nov 27 2012 3:33PM Cough Dec 05 2012 2:56PM Upper Respiratory Infections Dec 05 2012 2:56PM Hematoma, Abdominal Nov 02 2013 10:56AM Physical exam, pre-employment Mar 25 2014 8:46AM Tonsillitis May 30 2014 9:32AM Upper Respiratory Infections Sep 05 2014 2:29PM Otitis Media, Acute Sep 05 2014 2:29PM Abscess of thigh Jul 23 2015 2:02PM Dietary counseling Jul 23 2015 2:02PM Exercise counseling Jul 23 2015 2:02PM BMI 38.0-38.9,adult Jul 23 2015 2:02PM Mass of thigh, left Aug 12 2015 11:02AM Foot Pain Jun 06 2015 2:28PM Plantar fasciitis Jun 06 2015 2:28PM BMI 40.0-44.9, adult Nov 03 2017 9:11AM Dietary counseling Nov 03 2017 9:11AM Dietary counseling Dec 01 2017 8:32AM BMI 39.0-39.9,adult Dec 01 2017 8:32AM Gall stone Jan 10 2018 9:41AM Right-sided thoracic back pain Dec 272017 10:56AM Vomiting Jan 23 2018 10:56AM Calculus of gallbladder with cholecystit is without biliary obstruction, unspecified cholecystitis acuity Jan 23 2018 10:56AM Chronic Cholecystitis Jan 23 2018 10:56AM Name Date of Onset Comme nts Asthma Asthma Jan 13 2010 8:55AM Gardsil (HPV) Jan 13 2010 8:55AM Vulva and Perineum Noninflammatory Disorders Mar 27 2010 9:00AM Glucose Intolerance Mar 27 2010 9:00AM Polycystic Ovaries Mar 27 2010 9:00AM Glucose Intolerance Apr 01 2010 9:19AM Gardsil (HPV) May 05 2010 8:22AM Polycystic Ovaries Aug 05 2010 4:08PM Vaginal Discharge Aug 05 2010 4:08PM Dysuria Aug 05 2010 4:08PM Breast Pain/Mastodynia Jul 29 2010 1:25PM Routine gynecological examination Ma r 11 2010 10:46AM Contraceptive management Dec 04 2010 10:46AM Dietary Counseling Dec 22 2010 3:59PM Upper Respiratory Infection Apr 13 8:14AM High-Risk Sexual Behavior Apr 13 1 8:14AM Bronchitis, Acute Aug 17 2011 3:29PM Routine gynecological examination Fe b 2011 9:53AM Contraceptive management Oct 27 2011 9:53AM Vaginal Discharge Oct 27 2011 9:53AM Rhinitis, Allergic Jun 13 2012 4:14PM Abscess Jul 10 2012 9:37AM Abnormal Uterine Bleeding Oct 23 3 3:44PM Hand, Foot, And Mouth Disease Nov 06 2012 11:21AM Routine gynecological examination Ma r 4 2012 3:33PM Contraceptive management Nov 27 2012 3:33PM Vaginal Discharge Nov 27 2012 3:33PM Cough Dec 05 2012 2:56PM Upper Respiratory Infections Dec 05 2012 2:56PM Hematoma, Abdominal Nov 02 2013 10:56AM Physical exam, pre-employment Mar 25 2014 8:46AM Tonsillitis May 30 2014 9:32AM Upper Respiratory Infections Sep 05 2014 2:29PM Otitis Media, Acute Sep 05 2014 2:29PM Abscess of thigh Jul 23 2015 2:02PM Dietary counseling Jul 23 2015 2:02PM Exercise counseling Jul 23 2015 2:02PM BMI 38.0-38.9,adult Jul 23 2015 2:02PM Mass of thigh, left Aug 12 2015 11:02AM Foot Pain Jun 06 2015 2:28PM Plantar fasciitis Jun 06 2015 2:28PM BMI 40.0-44.9, adult Nov 03 2017 9:11AM Dietary counseling Nov 03 2017 9:11AM Dietary counseling Dec 01 2017 8:32AM BMI 39.0-39.9,adult Dec 01 2017 8:32AM Gall stone Jan 10 2018 9:41AM Right-sided thoracic back pain Dec 272017 10:56AM Vomiting Jan 23 2018 10:56AM Calculus of gallbladder with cholecystit is without biliary obstruction, unspecified cholecystitis acuity Jan 23 2018 10:56AM Chronic Cholecystitis Jan 23 2018 10:56AM Encounter for examination following surgery Viktor 4 2018 10:45AM Additional Source Comments This clinical document has been generated using Dada software that has been certified by the Office of the National Coordinator for Health Information Technology (ONC 15.99.04.3023.Diam.31.00.0.115466) and the National Committee for Joint Special Operations (NCQA, as an eMeasure certified technology). FOR RECORDS PERTAINING TO PATIENTS WHO ARE OR HAVE BEEN ENROLLED IN A CHEMICAL D EPENDENCY/SUBSTANCE ABUSE PROGRAM, SOME INFORMATION MAY BE OMITTED. This clinica l summary was aggregated from multiple sources. Caution should be exercised in using it in the provision of clinical care. This summary normalizes information from multiple sources, and as a consequence, information in this document may ma terially change the coding, format and clinical context of patient data. In adan tion, data may be omitted in some cases. CLINICAL DECISIONS SHOULD BE BASED ON T HE PRIMARY CLINICAL RECORDS. [employer] provides no warranty or guara ntee of the accuracy or completeness of information in this document.The followi ng information is based on time limited clinical information
--- OUTSIDE RECORDS SUMMARY | 2019-12-08 23:05 | XMS REPORT ---
Author Author Bridgett Rodríguez Organization [facility] Address [address] [place], [place] [id number] Care Team Providers Care Area Captain Name Role Phone Jose J Rodríguez PCP Iveth Hurst PreferredProvider Unavailable Allergies and Adverse Reactions Name Reaction Notes NO KNOWN DRUG ALLERGIES Plan of Treatment Not available. Medications Active Name Start Date Estimated Completion Date SIG Co mments Previfem 0.25-35 mg-mcg oral tablet take 1 tablet by oral route once daily Mirena 20 mcg/24 hr (5 years) intrauterine intrauterine device phentermine 37.5 mg oral tablet 11/03/2017 12/03/2017 take 1 tablet (37.5 mg) by oral route once daily before breakfast for 30 days Name Start Date Expiration Date SIG Comments desonide 0.05 % topical lotion 11/27/2009 12/27/2009 APPLY TWIC E DAILY NEEDED Flagyl 500 mg oral tablet 08/06/2010 08/13/2010 take 1 tablet (500 mg) by oral route 2 times per day for 7 days amoxicillin 875 mg oral tablet 08/17/2011 08/27/2011 t raheem 1 tablet (875 mg) by oral route every 12 hours for 10 days Bactrim DS 800-160 mg oral tablet 07/10/2012 07/20/2012 take 1 tablet by oral route every 12 hours for 10 days desonide 0.05 % topical lotion 10/31/2012 10/31/2012 a pply sparingly and rub gently into the affected area(s) by topical route 2 times per day promethazine-codeine 6.25-10 mg/5 mL oral syrup 12/05/2012 take 5 milliliters by oral route every 4-6 hours as needed, not to exceed 30 mL in 24 hours Zithromax Z-Humberto 250 mg oral tablet 12/05/2012 12/10/2012 take 2 tablets (500 mg) by oral route once daily for 1 day then 1 tablet (250 mg) by oral route once daily for 4 days amoxicillin 500 mg oral capsule 09/05/2014 09/15/2014 take 1 capsule (500 mg) by oral route 3 times per day for 10 days naproxen 500 mg oral tablet 06/06/2015 06/16/2015 take 1 tablet (500 mg) by oral route 2 times per day with food for 10 days Bactrim DS 800-160 mg oral tablet 07/23/2015 08/02/2015 take 1 tablet by oral route every 12 hours for 10 days Bactroban 2 % topical ointment 07/23/2015 08/02/2015 a pply a small amount to the affected area by topical route 2 times per day for 10 days Discontinued Name Start Date Discontinued Date SIG Comments Benzaclin 1-5 % topical gel 10/30/2009 06/13/2012 APPLY TWICE D AILY loratadine 10 mg oral tablet 01/20/2010 06/13/2012 audrey e 1 tablet (10 mg) by oral route once daily ProAir HFA 90 mcg/actuation inhalation HFA aerosol inhaler 1 10/23/2010 09/05/2014 inhale 2 puffs by inhalation route every 4-6 hours as needed phentermine 37.5 mg oral capsule 10/27/2011 06/13/2012 take 1 capsule (37.5 mg) by oral route once daily before breakfast for 30 days Tri-Sprintec (28) 0.18/0.215/0.25 mg-35 mcg (28) oral tablet 10/2712/07/2011 take 1 tablet by oral route once daily for 28 days Ortho-Novum 35 (28) 1-35 mg-mcg oral tablet 11/27/2012 take 1 tablet by oral route once daily Medrol (Humberto) 4 mg oral tablets,dose pack 09/05/2014 06/06/2015 take as directed albuterol sulfate 90 mcg/actuation inhalation HFA aerosol in haler 09/05/2014 06/06/2015 inhale 1 - 2 puffs by inhalation route every 6 hours a s needed phentermine 37.5 mg oral tablet 07/23/2015 11/03/2017 take 1 tablet (37.5 mg) by oral route once daily before breakfast Problem List Description Status Onset Asthma Active Vital Signs Date Time BP-Sys(mm[Hg] BP-Sully(mm[Hg]) HR(bpm) RR(rpm) Temp WT HT HC BMI BSA BMI Percentile O2 Sat(%) 11/03/2017 9:05:00 AM 128 mmHg 86 mmHg 98 bpm 16 rpm 96.3 F 257.5 lbs 67 in 40.33 kg/m2 2.35 m2 100 % 08/12/2015 11:01:00 AM 94 bpm 20 rpm 98.2 F 243 lbs 100 % 07/23/2015 2:01:00 PM 114 mmHg 78 mmHg 99 bpm 20 rpm 97.8 F 243.6 lbs 67 i n 38.1528 kg/m 2.2855 m 100 % 06/06/2015 2:26:00 PM 122 mmHg 62 mmHg 88 bpm 18 rpm 98.4 F 241.125 lbs 67 in 37.77 kg/m2 2.27 m2 99 % 09/05/2014 2:27:00 PM 126 mmHg 76 mmHg 114 bpm 20 rpm 98.6 F 236 lbs 67 in 36.9624 kg/m 2.2495 m 97 % 05/30/2014 9:30:00 AM 118 mmHg 84 mmHg 77 bpm 20 rpm 98.3 F 232.4 lbs 67 in 36.40 kg/m2 2.23 m2 99 % 03/25/2014 8:44:00 AM 121 mmHg 83 mmHg 72 bpm 20 rpm 98.3 F 235.2 lbs 67 in 36.8371 kg/m 2.2457 m 99 % 11/02/2013 10:54:00 AM 118 mmHg 82 mmHg 75 bpm 18 rpm 97.2 F 225 lbs 67 in 35.24 kg/m2 2.20 m2 100 % 12/05/2012 2:52:00 PM 120 mmHg 74 mmHg 87 bpm 20 rpm 97.4 F 220.6 lbs 67 in 34.5505 kg/m 2.1749 m 98 % 11/27/2012 3:31:00 PM 112 mmHg 60 mmHg 103 bpm 16 rpm 97.9 F 224.25 lbs 100 % 11/06/2012 11:18:00 AM 122 mmHg 80 mmHg 79 bpm 16 rpm 97.1 F 223.5 lbs 100 % 10/23/2012 3:42:00 PM 100 mmHg 68 mmHg 113 bpm 18 rpm 97.9 F 232 lbs 67 in 36.34 kg/m2 2.23 m2 99 % 07/10/2012 9:35:00 AM 124 mmHg 80 mmHg 79 bpm 16 rpm 96.5 F 217.5 lbs 100 % 06/13/2012 4:10:00 PM 120 mmHg 70 mmHg 99 bpm 16 rpm 98 F 216.5 lbs 100 % 10/27/2011 9:48:00 AM 130 mmHg 76 mmHg 101 bpm 16 rpm 97.8 F 231 lbs 67 in 36.1793 kg/m 2.2256 m 0 % 100 % 08/17/2011 3:32:00 PM 122 mmHg 86 mmHg 86 bpm 16 rpm 97.1 F 231.375 lbs 100 % 04/13/2011 8:15:00 AM 124 mmHg 74 mmHg 87 bpm 16 rpm 97.5 F 226 lbs 99 % 12/22/2010 3:58:00 PM 110 mmHg 70 mmHg 101 bpm 16 rpm 97.7 F 229 lbs 98 % 12/04/2010 10:41:00 AM 132 mmHg 84 mmHg 78 bpm 16 rpm 97.9 F 225.375 lbs 100 % 08/05/2010 4:07:00 PM 110 mmHg 70 mmHg 84 bpm 18 rpm 98.4 F 225 lbs 07/29/2010 1:23:00 PM 122 mmHg 80 mmHg 80 bpm 16 rpm 98.7 F 224 lbs 03/27/2010 8:57:00 AM 110 mmHg 80 mmHg 80 bpm 16 rpm 97.2 F 217.125 lbs 01/13/2010 8:47:00 AM 110 mmHg 78 mmHg 70 bpm 16 rpm 98.2 F 214.375 lbs 67 in 33.5755 kg/m 2.144 m 97.1 % Social History Name Description Comments Single Has never used alcohol Light 11/03/2017 - Denies illicit substance abuse Active but no formal exercise Children Tobacco Never smoker History of Procedures Date Ordered Description Order Status 10/27/2011 12:00 AM CYTOPATH C/V MANUAL Reviewed 10/27/2011 12:00 AM SMEAR WET MOUNT SALINE/INK Reviewed 06/13/2012 12:00 AM THER/PROPH/DIAG INJ SC/IM Reviewed 06/13/2012 12:00 AM Decadron, Per 1 Mg [facility]# [address]-77 Re viewed 06/13/2012 12:00 AM Depo-Medrol, Per 80 Mg [facility]#2504-1163-58 Reviewed 10/23/2012 12:00 AM Preg Test. Beta Sub Avelino % Revi ewed 11/27/2012 12:00 AM CYTOPATH C/V MANUAL Reviewed 11/27/2012 12:00 AM SMEAR WET MOUNT SALINE/INK Reviewed 11/27/2012 12:00 AM N. GONORRHOEAE ASSAY W/OPTIC Reviewed 11/27/2012 12:00 AM CHLAMYDIA CULTURE Reviewed 12/05/2012 12:00 AM THER/PROPH/DIAG INJ SC/IM Reviewed 12/05/2012 12:00 AM Decadron, Per 1 Mg [facility]# [address]-59 Re viewed 12/05/2012 12:00 AM Depo-Medrol, Per 80 Mg [facility]#0044-1867-95 Reviewed 01/13/2010 12:00 AM IMMUNIZATION ADMIN Reviewed 01/13/2010 12:00 AM HPV VACCINE 4 VALENT IM Reviewed 03/27/2010 12:00 AM N. GONORRHOEAE ASSAY W/OPTIC Reviewed 03/27/2010 12:00 AM CHLAMYDIA CULTURE Reviewed 03/27/2010 12:00 AM SMEAR WET MOUNT SALINE/INK Reviewed 03/27/2010 12:00 AM ASSAY GLUCOSE BLOOD QUANT Reviewed 04/01/2010 12:00 AM GLUCOSE TOLERANCE TEST (GTT) Reviewed 05/05/2010 12:00 AM IMMUNIZATION ADMIN Reviewed 05/05/2010 12:00 AM HPV VACCINE 4 VALENT IM Reviewed 08/05/2010 12:00 AM SMEAR WET MOUNT SALINE/INK Reviewed 08/05/2010 12:00 AM URINALYSIS NONAUTO W/SCOPE Reviewed 05/30/2014 12:00 AM STREP A ASSAY W/OPTIC Reviewed 05/30/2014 12:00 AM CULTURE SCREEN ONLY Reviewed 12/04/2010 12:00 AM CYTOPATH C/V MANUAL Reviewed 04/13/2011 12:00 AM CHLAMYDIA CULTURE Reviewed 04/13/2011 12:00 AM N.GONORRHOEAE DNA AMP PROB Reviewed Results Summary Date and Description Results 03/27/2010 10:34 AM WET PREP NO TRICHOMONADS SEE N 04/01/2010 8:25 AM GLUCOSE 94.0 mg/dL 08/05/2010 4:57 PM WET PREP NO TRICHOMONADS SEE N Mod COLOR YELLOW APPEARANCE CLEAR SPEC GRAV 1.010 pH 6.0 PROTEIN NEGATIVE GLUCOSE NEGATIVE KETONE NEGATIVE BILIRUBIN NEGATIVE BLOOD NEGATIVE NITRITE NEGATIVE LEUK SCREEN SMALL WBC/HPF RARE RBC/HPF 0-5 CASTS/LPF NEGATIVE CRYSTALS 1+ AMORPHOUS MUCOUS THRDS NEGATIVE BACTERIA NEGATIVE EPITH CELLS FEW SQUAMOUS TRICHOMONAS NEGATIVE YEAST NEGATIVE CULT SET UP? YES 10/27/2011 4:15 PM WET PREP NO TRICH SEEN CLUE CELLS NONE SEEN 10/23/2012 4:42 PM BETA HCG QUANT < 1.20 MIU/ML 11/27/2012 5:00 PM WET PREP NO TRICH SEEN CLUE CELLS NONE SEEN 05/30/2014 10:07 AM STREP SCREEN NEGATIVE STREP SCREEN NEGATIVE History Of Immunizations Name Date Admin Mfg Name Mfg Code Trade Name Lot# Route Inj Vis Given Vis Pub CVX HPV 01/13/2010 [employer] MSD GARDASIL [id number] Intramuscul ar Right Deltoid 01/13/2010 05/03/2008 999 HPV 05/05/2010 [employer] MSD GARDASIL [id number] Intramuscul ar Right Deltoid 05/05/2010 05/03/2008 999 History of Past Illness Name Date of Onset Comments Asthma Asthma Jan 13 2010 8:55AM Gardsil (HPV) Jan 13 2010 8:55AM Vulva and Perineum Noninflammatory Disorders Mar 27 2010 9: 00AM Glucose Intolerance Mar 27 2010 9:00AM Polycystic Ovaries Mar 27 2010 9:00AM Glucose Intolerance Apr 01 2010 9:19AM Gardsil (HPV) May 05 2010 8:22AM Polycystic Ovaries Aug 05 2010 4:08PM Vaginal Discharge Aug 05 2010 4:08PM Dysuria Aug 05 2010 4:08PM Breast Pain/Mastodynia Jul 29 2010 1:25PM Routine gynecological examination Dec 04 2010 10:46AM Contraceptive management Dec 04 2010 10:46AM Dietary Counseling Dec 22 2010 3:59PM Upper Respiratory Infection Apr 13 2011 8:14AM High-Risk Sexual Behavior Apr 13 2011 8:14AM Bronchitis, Acute Aug 17 2011 3:29PM Routine gynecological examination Oct 27 2011 9:53AM Contraceptive management Oct 27 2011 9:53AM Vaginal Discharge Oct 27 2011 9:53AM Rhinitis, Allergic Jun 13 2012 4:14PM Abscess Jul 10 2012 9:37AM Abnormal Uterine Bleeding Oct 23 2012 3:44PM Hand, Foot, And Mouth Disease Nov 06 2012 11:21AM Routine gynecological examination Nov 27 2012 3:33PM Contraceptive management Nov 27 2012 [...] 9:11AM Dietary counseling Nov 03 2017 9:11AM Payers Insurance Name Company Name Plan Name Plan Number Policy Number Fredis cy Group Number Start Date BCBS [facility] [id number] 2016 Cigmartin Reyes [id number] N/A [id number] Wednesday, [address] [facility] [id number] Wednesday, 2010 [employer] [facility] Financial Assistance [employer] Irina 50 percent discount September Cigna RADHA [id number] N/A History of Encounters Visit Date Visit Type Provider 11/03/2017 Office visit Jose J Rodríguez MD 08/12/2015 Office visit Iveth LINDA RN 07/23/2015 Office visit Iveth LINDA RN 06/06/2015 Office visit Rola LINDA RN 09/05/2014 Office visit Iveth LINDA RN 05/30/2014 Office visit Iveth LINDA RN 03/25/2014 Office visit Iveth LINDA RN 11/02/2013 Office visit MAISHA CHACON 12/05/2012 Office visit Iveth LINDA RN 11/27/2012 Office visit Monet Calvert MD 11/06/2012 Office visit Monet Calvert MD 10/23/2012 Office visit Monet Calvert MD 07/10/2012 Office visit Monet Calvert MD 06/13/2012 Office visit Monet Calvert MD 10/27/2011 Office visit Monet Calvert MD 08/17/2011 Office visit Monet Calvert MD 04/13/2011 Office visit Delicia HESTER 12/22/2010 Office visit Monet Calvert MD 12/04/2010 Office visit Monet Calvert MD 08/05/2010 Office visit Monet Calvert MD 07/29/2010 Office visit Monet Calvert MD 05/05/2010 Nurse visit Monet Calvert MD 03/27/2010 Office visit Monet Calvert MD 01/13/2010 Office visit Monet Calvert MD 06/18/2009 Office visit Grace Lam MD 05/28/2009 Office visit Grace Lma MD 05/19/2009 Office visit Grace Lam MD
--- OUTSIDE RECORDS SUMMARY | 2019-12-08 23:05 | XMS REPORT ---
Author Author Bridgett Hurst Organization [facility] Address [address] [place], [place] [address] Care Team Providers Care Psychiatric Orderly Name Role Phone Iveth Hurst PCP Unavailable Allergies and Adverse Reactions Name Reaction Notes NO KNOWN DRUG ALLERGIES Plan of Treatment Not available. Medications Active Name Start Date Estimated Completion Date SIG Co mments Previfem 0.25-35 mg-mcg oral tablet take 1 tablet by oral route once daily phentermine 37.5 mg oral tablet 07/23/2015 take 1 tablet (37.5 mg) by oral route once daily before breakfast Name Start Date Expiration Date SIG Comments [...] route once daily for 28 days Ortho-Novum 1/35 (28) 1-35 mg-mcg oral tablet 11/27/2012 take 1 tablet by oral route once daily Medrol (Humberto) 4 mg oral tablets,dose pack 09/05/2014 06/06/2015 take as directed albuterol sulfate 90 mcg/actuation inhalation HFA aerosol in haler 09/05/2014 06/06/2015 inhale 1 - 2 puffs by inhalation route every 6 hours a s needed Problem List Description Status Onset Asthma Active Vital Signs Date Time BP-Sys(mm[Hg] BP-Sully(mm[Hg]) HR(bpm) RR(rpm) Temp WT HT HC BMI BSA BMI Percentile O2 Sat(%) 08/12/2015 11:01:00 AM 94 bpm 20 rpm [...] % Social History Name Description Comments Single High school attendee Has never used alcohol Denies illicit substance abuse 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# [address]-16 Re viewed 06/13/2012 12:00 AM Depo-Medrol, Per [address] [facility]#1873-6330-05 Reviewed 10/23/2012 12:00 AM Preg Test. Beta Sub Avelino % Retu rned 11/27/2012 12:00 AM CYTOPATH C/V MANUAL Returned 11/27/2012 12:00 AM SMEAR WET MOUNT SALINE/INK Returned 11/27/2012 12:00 AM N. GONORRHOEAE ASSAY W/OPTIC Reviewed 11/27/2012 12:00 AM CHLAMYDIA CULTURE Reviewed 12/05/2012 12:00 AM THER/PROPH/DIAG INJ SC/IM Reviewed 12/05/2012 12:00 AM Decadron, Per [address] [facility]# [address]-58 Re viewed 12/05/2012 12:00 AM Depo-Medrol, Per [address] [facility]#1325-4256-39 Reviewed 01/13/2010 12:00 AM IMMUNIZATION ADMIN Reviewed [...] 05/30/2014 12:00 AM STREP A ASSAY W/OPTIC Returned 05/30/2014 12:00 AM CULTURE SCREEN ONLY Returned 12/04/2010 12:00 AM CYTOPATH C/V MANUAL Reviewed 04/13/2011 12:00 AM CHLAMYDIA CULTURE Reviewed 04/13/2011 12:00 AM N.GONORRHOEAE DNA AMP PROB Reviewed Results Summary Data and Description Results 03/27/2010 10:34 AM WET PREP NO TRICHOMONADS SEE N 04/01/2010 8:25 AM GLUCOSE 94.0 mg/dL 08/05/2010 4:57 PM WET PREP NO TRICHOMONADS SEE N COLOR YELLOW APPEARANCE CLEAR SPEC GRAV 1.010 pH 6.0 PROTEIN NEGATIVE GLUCOSE NEGATIVE KETONE NEGATIVE BILIRUBIN NEGATIVE BLOOD NEGATIVE NITRITE NEGATIVE LEUK SCREEN SMALL CASTS/LPF NEGATIVE CRYSTALS 1+ AMORPHOUS MUCOUS THRDS NEGATIVE BACTERIA NEGATIVE EPITH CELLS FEW SQUAMOUS TRICHOMONAS NEGATIVE YEAST NEGATIVE 10/27/2011 4:15 PM WET PREP NO TRICH SEEN CLUE CELLS NONE SEEN 10/23/2012 4:42 PM BETA HCG QUANT < 1.20 MIU/ML 11/27/2012 5:00 PM WET PREP NO TRICH SEEN CLUE CELLS NONE SEEN 03/25/2014 9:30 AM WBC 8.4 RBC 4.81 HGB 13.60 g /dLHCT 39.80 %MCV 83.0 fLMCH 28.30 pgMCHC 34.20 g/dLRDW CV 13.30 %MPV 10.90 fLPLT 243 COLOR YELLOW APPEARANCE CLOUDY SPEC GRAV >=1.030 pH 6.0 PROTEIN NEGATIVE GLUCOSE NEGATIVE KETONE NEGATIVE BILIRUBIN NEGATIVE BLOOD NEGATIVE NITRITE NEGATIVE LEUK SCREEN NEGATIVE CASTS/LPF NEGATIVE CRYSTALS NEGATIVE MUCOUS THRDS NEGATIVE BACTERIA FEW EPITH CELLS 3+++ SQUAMOUS TRICHOMONAS NEGATIVE YEAST NEGATIVE GLUCOSE 94.0 mg/dLSODIUM 141.0 mmol/LPOTASSIUM 3.80 mmol/LCHLORIDE 107.0 mmol/LCO2 25.0 mmol/LBUN 9.0 mg/dLCREATININE 0.70 mg/dLSGOT/AST 15.0 IU/LSGPT/ALT 16.0 IU/LALK PHOS 111.0 IU/LTOTAL PROTEIN 7.60 g/dLALBUMIN 3.90 g/dLTOTAL BILI 0.50 mg/dLCALCIUM 9.50 m g/dLeGFR 60 TRIGLYCERIDES 150.0 mg/dLCHOLESTEROL 184.0 mg/dLHDL 39.0 mg/dLLDL (CALC) 115.0 mg/dLVaricella Zoster IgG 618.0 IndexRubella Antibodies, IgG 1.62 IndexRubeola Ab, IgG >300.0 AU/mLMumps Abs, IgG 46.8 AU/ml History Of Immunizations Name Date Admin Mfg [...] of thigh, left Aug 12 2015 11:02AM Payers Insurance Name Company Name Plan Name Plan Number Policy Number Fredis cy Group Number Start Date Cigna Eric [id number] N/A [facility] [id number] Wednesday, 2009 [id number] Wednesday, 2010 [employer] Financial Assistance [employer] Reji cortesial Irian 50 percent discount September Cigna CIGNA [id number] N/A History of Encounters Visit Date Visit Type Provider 08/12/2015 Office visit Iveth LINDA RN 07/23/2015 Office visit Iveth LINDA RN 06/06/2015 Office visit Rola LINDA RN 09/05/2014 Office visit Iveth LINDA RN 05/30/2014 Office visit Iveth LINDA RN 03/25/2014 Office visit Iveth LINDA RN 11/02/2013 Office visit MAISHA AREVALO INES 12/05/2012 Office visit Iveth LINDA RN 11/27/2012 [...] Grace Lam MD 05/28/2009 Office visit Grace Lam MD 05/19/2009 Office visit Grace Lam MD
--- OUTSIDE RECORDS SUMMARY | 2019-12-08 23:05 | XMS REPORT ---
Author Author Bridgett Rodríguez Organization [facility] Address [address] [place], [place] [address] Care Team Providers Care Model Technician Name Role Phone Jose J Rodríguez PCP [...] intrauterine device phentermine 37.5 mg oral tablet 12/01/2017 12/31/2017 take 1 tablet (37.5 mg) by oral [...] HC BMI BSA BMI Percentile O2 Sat(%) 12/01/2017 8:30:00 AM 122 mmHg 78 mmHg 83 bpm 16 rpm 96.5 F 252 lbs 67 in 39.47 kg/m2 2.32 m2 100 % 11/03/2017 9:05:00 AM 128 mmHg 86 mmHg 98 bpm 16 rpm 96.3 F 257.5 lbs 67 in 40.3298 kg/m 2.3498 m 100 % 08/12/2015 11:01:00 AM 94 bpm [...] 06/13/2012 12:00 AM Decadron, Per 1 Mg [facility]# [address]-56 Re viewed 06/13/2012 12:00 AM Depo-Medrol, Per 80 Mg [facility]#0044[address]-51 Reviewed 10/23/2012 12:00 AM Preg Test. Beta Sub Avelino % Revi ewed 11/27/2012 12:00 AM CYTOPATH C/V MANUAL Reviewed 11/27/2012 12:00 AM SMEAR WET MOUNT SALINE/INK Reviewed 11/27/2012 12:00 AM N. GONORRHOEAE ASSAY W/OPTIC Reviewed 11/27/2012 12:00 AM CHLAMYDIA CULTURE Reviewed 12/05/2012 12:00 AM THER/PROPH/DIAG INJ SC/IM Reviewed 12/05/2012 12:00 AM Decadron, Per 1 Mg [facility]# [address]-77 Re viewed 12/05/2012 12:00 AM Depo-Medrol, Per 80 Mg [facility]#5850-9979-76 Reviewed 01/13/2010 12:00 AM IMMUNIZATION ADMIN Reviewed [...] 8:32AM BMI 39.0-39.9,adult Dec 01 2017 8:32AM Payers Insurance Name Company Name Plan Name Plan Number Policy Number Fredis cy Group Number Start Date BCBS [facility] [place] [id number] 2016 BCBS [facility]cbs [facility] [id number] Wednesday, 2009 BCBS [employer] [place] [id number] Wednesday, 2010 [facility] Financial Assistance [facility] Irina 50 percent discount September BCBS [facility] [facility] [place] [id number] May Cigna CIGNA [id number] N/A Cigna Cigna [id number] N/A History of Encounters Visit Date Visit Type Provider 12/01/2017 Office visit Jose J Rodríguez MD 11/03/2017 Office visit Jose J Rodríguez MD 08/12/2015 Office visit Iveth LINDA RN 07/23/2015 Office visit Iveth LINDA RN 06/06/2015 Office visit Rola LINDA RN 09/05/2014 Office visit Iveth LINDA RN 05/30/2014 Office visit Iveth LINDA RN 03/25/2014 Office visit Iveth LINDA RN 11/02/2013 Office visit MAISHAROES AREVALO INES 12/05/2012 Office visit Iveth LINDA [...]
--- OUTSIDE RECORDS SUMMARY | 2019-12-08 23:05 | XMS REPORT ---
Author Author Bridgett Rodríguez Organization [facility] Address [address] [place], [place] [address] Care Team Providers Care Evaluation Manager Name Role Phone Jose J Rodríguez PCP Iveth Hurst PreferredProvider Unavailable Allergies and Adverse Reactions Name Reaction Notes NO KNOWN DRUG ALLERGIES Plan of Treatment Planned Activity Comments Planned Date Planned Time Plan/Goal gallstone Medications Active Name Start Date Estimated Completion Date SIG Co mments Previfem 0.25-35 mg-mcg oral tablet take 1 tablet by oral route once daily Mirena 20 mcg/24 hr (5 years) intrauterine intrauterine device Name Start Date Expiration Date SIG Comments [...] 2 times per day for 10 days phentermine 37.5 mg oral tablet 12/01/2017 12/31/2017 take 1 tablet (37.5 mg) by oral route once daily before breakfast for 30 days Discontinued Name Start Date Discontinued Date [...] HC BMI BSA BMI Percentile O2 Sat(%) 01/10/2018 9:39:00 AM 124 mmHg 86 mmHg 74 bpm 18 rpm 98.8 F 254 lbs 67 in 39.7816 kg/m 2.3337 m 98 % 12/01/2017 8:30:00 AM 122 mmHg 78 mmHg [...] rpm 97.9 F 232 lbs 67 in 36.336 kg/m 2.2304 m 99 % 07/10/2012 9:35:00 AM 124 mmHg [...] 06/13/2012 12:00 AM Decadron, Per 1 Mg NDC# [address]-85 Re viewed 06/13/2012 12:00 AM Depo-Medrol, Per 80 Mg NDC#8195-5861-69 Reviewed 10/23/2012 12:00 AM Preg Test. Beta Sub Avelino % Revi ewed 11/27/2012 12:00 AM CYTOPATH C/V MANUAL Reviewed 11/27/2012 12:00 AM SMEAR WET MOUNT SALINE/INK Reviewed 11/27/2012 12:00 AM N. GONORRHOEAE ASSAY W/OPTIC Reviewed 11/27/2012 12:00 AM CHLAMYDIA CULTURE Reviewed 12/05/2012 12:00 AM THER/PROPH/DIAG INJ SC/IM Reviewed 12/05/2012 12:00 AM Decadron, Per 1 Mg ND# [address]-13 Re viewed 12/05/2012 12:00 AM Depo-Medrol, Per 80 Mg NDC#2083-6095-11 Reviewed 01/13/2010 12:00 AM IMMUNIZATION ADMIN Reviewed [...] 8:32AM Gall stone Jan 10 2018 9:41AM Payers Insurance Name Company Name Plan Name Plan Number Policy Number Fredis cy Group Number Start Date BCBS Bcbs [facility] [id number] We 2016 BCBS Bcbs [facility] [id number] Wednesday, 2009 BCBS Bcbs [facility] [id number] Wednesday, 2010 [employer] Financial Assistance [employer] Fin ancial Irina 50 percent discount September BCBS Bcbs [facility] [id number] May Eric REYES [id number] N/A Eric Reyes [id number] N/A History of Encounters Visit Date Visit Type Provider 01/10/2018 Office visit Jose J Rodríguez MD 12/01/2017 Office visit Jose J Rodríguez MD 11/03/2017 Office visit Jose J Rodríguez MD 08/12/2015 Office visit Iveth Hurst AP RN 07/23/2015 Office visit Iveth Hurst AP RN 06/06/2015 Office visit Rola Grullon AP RN 09/05/2014 Office visit Iveth Hurst AP RN 05/30/2014 Office visit Iveth Hurst AP RN 03/25/2014 Office visit Iveth Hurst AP RN 11/02/2013 Office visit MAISHA MICKEY CHACON 12/05/2012 Office visit Iveth Hurst AP RN 11/27/2012 Office visit Monet Calvert MD [...]
--- OUTSIDE RECORDS SUMMARY | 2019-12-08 23:06 | XMS REPORT ---
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 Phone Ish Arambula PCP Iveth Hurst PreferredProvider Unavailable Allergies and Adverse Reactions Name Reaction Notes NO KNOWN DRUG ALLERGIES Plan of Treatment Planned Activity Comments Planned Date Planned Time Plan/Goal CBC with Diff, automated 02/15/2018 12:00 AM gallstone Medications Active Name Start Date Estimated Completion Date SIG Co mments Previfem 0.25-35 mg-mcg oral tablet take 1 tablet by oral route once daily Name Start Date Expiration Date SIG Comments [...] route once daily for 28 days Ortho-Novum /35 (28) 1-35 mg-mcg oral tablet 11/27/2012 take [...] by oral route once daily before breakfast Mirena 20 mcg/24 hr (5 years) intrauterine intrauterine device 01/23/2018 Problem List Description Status Onset Asthma Active Vital Signs Date Time BP-Sys(mm[Hg] BP-Sully(mm[Hg]) HR(bpm) RR(rpm) Temp WT HT HC BMI BSA BMI Percentile O2 Sat(%) 01/23/2018 10:55:00 AM 124 mmHg 86 mmHg 87 bpm 16 rpm 98.8 F 252 lbs 67 in 39.4684 kg/m 2.3245 m 99 % 01/10/2018 9:39:00 AM 124 mmHg 86 mmHg 74 bpm 18 rpm 98.8 F 254 lbs 67 in 39.78 kg/m2 2.33 m2 98 % 12/01/2017 8:30:00 AM 122 mmHg 78 mmHg 83 bpm 16 rpm 96.5 F 252 lbs 67 in 39.4684 kg/m 2.3245 m 100 % 11/03/2017 9:05:00 AM 128 mmHg [...] 06/13/2012 12:00 AM Decadron, Per 1 Mg [facility]# [address]-47 Re viewed 06/13/2012 12:00 AM Depo-Medrol, Per 80 Mg ND#5853-2284-98 Reviewed 10/23/2012 12:00 AM Preg Test. Beta Sub Avelino % Revi ewed 11/27/2012 12:00 AM CYTOPATH C/V MANUAL Reviewed 11/27/2012 12:00 AM SMEAR WET MOUNT SALINE/INK Reviewed 11/27/2012 12:00 AM N. GONORRHOEAE ASSAY W/OPTIC Reviewed 11/27/2012 12:00 AM CHLAMYDIA CULTURE Reviewed 12/05/2012 12:00 AM THER/PROPH/DIAG INJ SC/IM Reviewed 12/05/2012 12:00 AM Decadron, Per 1 Mg [facility]# [address]-28 Re viewed 12/05/2012 12:00 AM Depo-Medrol, Per 80 Mg ND#1384-6018-46 Reviewed 01/23/2018 12:00 AM COMPLETE CBC W/AUTO DIFF WBC Returned 01/23/2018 12:00 AM COMPREHEN METABOLIC PANEL Returned 01/23/2018 12:00 AM ECHO EXAM OF ABDOMEN Returned 01/13/2010 12:00 AM IMMUNIZATION ADMIN Reviewed 01/13/2010 [...] 10 2018 9:41AM Right-sided thoracic back pain Jan 23 2018 10:56AM Vomiting Jan 23 2018 10:56AM Calculus of gallbladder with cholecystit is without biliary obstruction, unspecified cholecystitis acuity Jan 23 2018 10:56AM Chronic Cholecystitis Jan 23 2018 10:56AM Payers Insurance Name Company Name Plan Name Plan Number Policy Number Fredis cy Group [id number] We 2016 BC[facility] [id number] Wednesday, 2009 BS [facility] [id number] Wednesday, 2010 [facility] Financial Assistance [facility] Reji Estesis 50 percent discount September BCBS [facility] [id number] May Cigna CIGJOSE FRANCISCO [id number] N/A Cigna Cigna [id number] N/A History of Encounters Visit Date Visit Type Provider 01/23/2018 Office visit Ish Arambula MD 01/10/2018 Office visit Jose J Rodríguez MD [...] Monet Calvert MD 10/23/2012 Office visit Monet Calvret MD 07/10/2012 Office visit Monet Calvert MD 06/13/2012 Office visit Monet Calvert MD 10/27/2011 Office visit Monet Calvert MD 08/17/2011 Office visit Monet Calvert MD 04/13/2011 Office visit eDlicia HESTER 12/22/2010 Office visit Monet aClvert MD 12/04/2010 Office visit Monet Calvert MD 08/05/2010 Office visit Monet Calvert MD 07/29/2010 Office visit Monet Calvert MD 05/05/2010 Nurse visit Monet Calvert MD 03/27/2010 Office visit Monet Calvert MD 01/13/2010 Office visit Monet Calvert MD 06/18/2009 Office visit Grace Lam MD 05/28/2009 Office visit Grace Lam MD 05/19/2009 Office visit Grace Lam MD
--- OUTSIDE RECORDS SUMMARY | 2019-12-08 23:06 | XMS REPORT ---
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 Beta Sub Avelino % Retu rned 11/27/2012 12:00 AM CYTOPATH C/V MANUAL Returned 11/27/2012 12:00 AM SMEAR WET MOUNT SALINE/INK Returned 11/27/2012 12:00 AM N. GONORRHOEAE ASSAY W/OPTIC Reviewed 11/27/2012 12:00 AM CHLAMYDIA CULTURE Reviewed 12/05/2012 12:00 AM THER/PROPH/DIAG INJ SC/IM Reviewed 12/05/2012 12:00 AM Decadron, Per 1 Mg [facility]# [address]-13 Re viewed 12/05/2012 12:00 AM Depo-Medrol, Per 80 Mg [facility]#5424-0303-14 Reviewed 01/13/2010 12:00 AM IMMUNIZATION ADMIN Reviewed [...] 2:28PM Plantar fasciitis Jun 06 2015 2:28PM Payers Insurance Name Company Name Plan Name Plan Number Policy Number Fredis cy Group Number Start Date Cigna Eric [id number] N/A [facility] [id number] Wednesday, 2009 [facility] [id number] Wednesday, 2010 [facility] Financial Assistance [employer] Fin ancial Irina 50 percent discount September Cigna ERIC [id number] N/A History of Encounters Visit Date Visit Type Provider 08/12/2015 Office visit Iveth LINDA RN 07/23/2015 Office visit Iveth LINDA RN 06/06/2015 Office visit Rola LINDA RN 09/05/2014 Office visit Iveth LINDA RN 05/30/2014 Office visit Iveth LINDA RN 03/25/2014 Office visit Iveth LINDA RN 11/02/2013 Office visit MAISHA MICKEY CHACON 12/05/2012 Office visit Iveth LINDA RN [...]
--- OUTSIDE RECORDS SUMMARY | 2019-12-08 23:06 | XMS REPORT ---
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 Medications Active Name Start Date Estimated Completion Date SIG Co mments Previfem 0.25-35 mg-mcg oral tablet take 1 tablet by oral route once daily Bactrim DS 800-160 mg oral tablet 07/23/2015 08/02/2015 take 1 tablet by oral route every 12 hours for 10 days Bactroban 2 % topical ointment 07/23/2015 08/02/2015 a pply a small amount to the affected area by topical route 2 times per day for 10 days phentermine 37.5 mg oral tablet 07/23/2015 take [...] per day with food for 10 days Discontinued Name Start Date [...] HC BMI BSA BMI Percentile O2 Sat(%) 07/23/2015 2:01:00 PM 114 mmHg 78 mmHg 99 bpm 20 rpm 97.8 F 243.6 lbs 67 i n 38.15 kg/m2 2.29 m2 100 % 06/06/2015 2:26:00 PM 122 mmHg 62 mmHg 88 bpm 18 rpm 98.4 F 241.125 lbs 67 in 37.7651 kg/m 2.2738 m 99 % 09/05/2014 2:27:00 PM 126 mmHg 76 mmHg 114 bpm 20 rpm 98.6 F 236 lbs 67 in 36.96 kg/m2 2.25 m2 97 % 05/30/2014 9:30:00 AM 118 mmHg 84 mmHg 77 bpm 20 rpm 98.3 F 232.4 lbs 67 in 36.3986 kg/m 2.2323 m 99 % 03/25/2014 8:44:00 AM 121 mmHg 83 mmHg 72 bpm 20 rpm 98.3 F 235.2 lbs 67 in 36.84 kg/m2 2.25 m2 99 % 11/02/2013 10:54:00 AM 118 mmHg 82 mmHg 75 bpm 18 rpm 97.2 F 225 lbs 67 in 35.2396 kg/m 2.1965 m 100 % 12/05/2012 2:52:00 PM 120 mmHg 74 mmHg 87 bpm 20 rpm 97.4 F 220.6 lbs 67 in 34.55 kg/m2 2.17 m2 98 % 11/27/2012 3:31:00 PM 112 mmHg 60 mmHg 103 bpm 16 rpm 97.9 F 224.25 lbs 100 % 11/06/2012 11:18:00 AM 122 mmHg 80 mmHg 79 bpm 16 rpm 97.1 F 223.5 lbs 100 % 10/23/2012 3:42:00 PM 100 mmHg 68 mmHg 113 bpm 18 rpm 97.9 F 232 lbs 67 in 36.34 kg/m2 2.2304 m 99 % 07/10/2012 9:35:00 AM 124 mmHg 80 mmHg 79 bpm 16 rpm 96.5 F 217.5 lbs 100 % 06/13/2012 4:10:00 PM 120 mmHg 70 mmHg 99 bpm 16 rpm 98 F 216.5 lbs 100 % 10/27/2011 9:48:00 AM 130 mmHg 76 mmHg 101 bpm 16 rpm 97.8 F 231 lbs 67 in 36.1793 kg/m 2.23 m2 0 % 100 % 08/17/2011 3:32:00 PM [...] F 214.375 lbs 67 in 33.5755 kg/m 2.14 m2 97.1 % Social History Name Description Comments [...] 06/13/2012 12:00 AM Decadron, Per 1 Mg [facility][NOTE 3]# [address]-56 Re viewed 06/13/2012 12:00 AM Depo-Medrol, Per 80 Mg ND#8304-3630-80 Reviewed 10/23/2012 12:00 AM Preg Test. Beta Sub Avelino % Retu rned 11/27/2012 12:00 AM CYTOPATH C/V MANUAL Returned 11/27/2012 12:00 AM SMEAR WET MOUNT SALINE/INK Returned 11/27/2012 12:00 AM N. GONORRHOEAE ASSAY W/OPTIC Reviewed 11/27/2012 12:00 AM CHLAMYDIA CULTURE Reviewed 12/05/2012 12:00 AM THER/PROPH/DIAG INJ SC/IM Reviewed 12/05/2012 12:00 AM Decadron, Per 1 Mg [facility][NOTE 3]# [address]-00 Re viewed 12/05/2012 12:00 AM Depo-Medrol, Per 80 Mg [facility][NOTE 3]#2458-8150-12 Reviewed 01/13/2010 12:00 AM IMMUNIZATION ADMIN Reviewed [...] 2:02PM BMI 38.0-38.9,adult Jul 23 2015 2:02PM Payers Insurance Name Company Name Plan Name Plan Number Policy Number Fredis cy Group Number Start Date Cigna Cigmartin [id number] N/A [facility] [id number] Wednesday, 2009 [facility] [id number] Wednesday, 2010 [facility] Financial Assistance [facility] Irina 50 percent discount September Cigna CIGNA [id number] N/A History of Encounters Visit Date Visit Type Provider 07/23/2015 Office visit Iveth LINDA RN 06/06/2015 [...]
--- OUTSIDE RECORDS SUMMARY | 2019-12-08 23:06 | XMS REPORT ---
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 Beta Sub Avelino % Revi ewed 11/27/2012 12:00 AM CYTOPATH C/V MANUAL Reviewed 11/27/2012 12:00 AM SMEAR WET MOUNT SALINE/INK Reviewed 11/27/2012 12:00 AM N. GONORRHOEAE ASSAY W/OPTIC Reviewed 11/27/2012 12:00 AM CHLAMYDIA CULTURE Reviewed 12/05/2012 12:00 AM THER/PROPH/DIAG INJ SC/IM Reviewed 12/05/2012 12:00 AM Decadron, Per 1 Mg NDC# [address]-25 Re viewed 12/05/2012 12:00 AM Depo-Medrol, Per 80 Mg NDC#6677-3180-41 Reviewed 01/23/2018 12:00 AM COMPLETE CBC W/AUTO [...] NEGATIVE History Of Immunizations Name Date Admin [facility] Name [facility] Code Trade Name Lot# Route Inj Vis [...] 2018 10:56AM Encounter for examination following surgery Feb 27 2018 10:4 5AM Payers Insurance Name Company Name Plan Name Plan Number Policy Number Fredis cy Group Number Start Date [employer] [place] [place] [id number] We 2016 [employer] [place] [id number] Wednesday, 2009 [employer] [place] [id number] Wednesday, 2010 [employer] Financial Assistance [employer] Fin ancial Irina 50 percent discount September [employer]BS [place] [id number] May Cigna CIGNA [id number] N/A Cigna Cigna [id number] N/A History of Encounters Visit Date Visit Type Provider 02/27/2018 Office visit Ish Arambula MD 02/16/2018 Surgery Ish Arambula MD 01/23/2018 Office visit Ish Arambula MD 01/10/2018 [...]
[2019-12-09] VITALS: BP 113/75
[2019-12-09] MEDS: IBUPROFEN 600 MG (MOTRIN) TAB PO SCH ×2 (02:51→08:59)
[2019-12-09] MEDS: CATHETER FLUSH 10 ML SYR IV SCH (03:22)
[2019-12-09 06:00] VITALS: BP 102/54
[2019-12-09] MEDS: DOCUSATE SODIUM 100 MG (COLACE) CAP PO SCH (08:59)
--- NOTE | 2019-12-09 09:10 | Postpartum Progress Note ---
Post Op Post-operative Day # 2 s/p RLTCS Subjective: Patient is without complaints. Ambulating, voiding after apodaca removed. Tolerating a regular diet without nausea or vomiting. Normal lochia. Pain is well controlled with oral pain medications. Passing flatus. breast feeding. Objective: 12/09/19 12/09/19 12/09/19 00:00 06:00 08:00 Temp 36.3 36.4 Pulse 73 70 Resp 20 20 B/P (MAP) 113/75 (88) 102/54 (70) Pulse Ox 94 96 O2 Delivery Room Air Room Air Room Air 12/09/19 00:00 Intake Total 2990 ml Balance 2990 ml Physical Exam: General - Alert and oriented, no apparent distress Abdomen - Soft, appropriately tender to palpation, non-distended, fundus firm at umbilicus Incision - clean, dry and intact; no erythema or induration, no drainage Extremities - no edema, negative Мария's bilaterally Assessment: 1. post-operative day # 2, status post RLTCS. Recovering well, hemodynamically stable Plan: Routine post-operative care. Encourage breast feeding. Encourage ambulation. VTE prophylaxis: SCDs. Ferrous sulfate supplementation. Plan for discharge today Vitals - Labs Vital Signs - I&O Vital Signs Date Time Temp Pulse Resp B/P (MAP) Pulse Ox O2 Delivery O2 Flow Rate FiO2 12/09/19 08:00 Room Air 12/09/19 06:00 36.4 70 20 102/54 (70) 96 Room Air 12/09/19 00:00 36.3 73 20 113/75 (88) 94 Room Air 12/08/19 17:31 36.6 86 16 105/72 (83) 97 12/08/19 12:22 36.5 74 16 107/64 (78) 95 I & O 12/09/19 07:00 Intake Total 2990 ml Balance 2990 ml CARRILLO HAWKINS DO Dec 09, 2019 09:10
== END 2019-12-09 10:45 | disposition home or self-care (01) | DRG 788 ==
LOC: LDRP 06:45 → WS 12:07
PROVIDERS: ADMIT Obstetrics & Gynecology; ATTEND Obstetrics & Gynecology
PROC: 10D00Z1 Extraction of Products of Conception, Low, Open Approach (ICD-10-PCS; principal; 2019-12-07 09:23)
DX: O34.211 Maternal care for low transverse scar from previous cesarean delivery (principal); O99.214 Obesity complicating childbirth; E66.9 Obesity, unspecified; Z3A.39 39 weeks gestation of pregnancy; Z37.0 Single live birth
CPT/HCPCS: 36415; 85025; 86850; 86900; 86901; 94664

== ENCOUNTER → 2020-04-17 | Outpatient (CLI) | payer BC, MEDICAID ==
[~2020-04-17] MED LIST changes: +DCS100C PO; +Hydrocodone Bit/Acetaminophen PO; +IBUP-844 PO
--- NOTE | 2020-04-17 13:33 | Diagnostic Imaging Report ---
PROCEDURE: US Non-ob pelvis comp/trans. TECHNIQUE: Multiple realtime grayscale images were obtained of the pelvis in various projections endovaginally. Transabdominal imaging was also performed. INDICATION: Abnormal uterine bleeding for 4 months. Uterus is retroverted measuring 7.6 x 5.1 x 5.6 cm. Endometrium is 7 mm in thickness. No myometrial mass is identified. The right ovary measures 3.6 x 2.0 x 2.0 cm and the left ovary measures 3.6 x 1.7 x 3.0 cm. Ovaries contain small follicles. There is blood flow to both ovaries. No adnexal mass is identified. There is a small amount of free fluid in the pelvis. IMPRESSION: Essentially unremarkable pelvic ultrasound. Dictated by: Dictated on workstation # [id number]
== END ==
LOC: RAD 11:32
PROVIDERS: ATTEND Obstetrics & Gynecology
DX: N93.9 Abnormal uterine and vaginal bleeding, unspecified (principal)
CPT/HCPCS: 76830; 76856